=== PATIENT | female | born 1975 | race Caucasian/White ===

== ENCOUNTER 2018-04-28 00:02 | Emergency (ER) | payer BC, OTHER ==
[2018-04-28 00:17] VITALS: RESP 18; TEMP 98.3
[2018-04-28] MEDS ORDERED: IBUPROFEN 600 MG TAB PO STA (01:54)
--- NOTE | 2018-04-28 02:18 | XR ---
EXAMINATION TYPE: XR shoulder complete LT DATE OF EXAM: 04/28/2018 COMPARISON: NONE HISTORY: Shoulder pain TECHNIQUE: 3 views FINDINGS: I see no fracture nor dislocation. Glenohumeral joint is anatomic. There are no pathologic calcifications. IMPRESSION: Negative left shoulder exam.
--- NOTE | 2018-04-28 02:32 | ED ---
Lower Extremity Injury HPI - General Chief Complaint: Extremity Injury, Upper Stated Complaint: Left should pain-[facility] Time Seen by Provider: 04/28/18 01:26 Source: patient Mode of arrival: ambulatory Limitations: no limitations - History of Present Illness Initial Comments: 42-year-old female patient presents the emergency department today for evaluation of left shoulder pain. Patient states that she was at work when she was attempting to put a lid on a crate, she states that the lid fell and pulled her arm and shoulder. If she states that initially the pain wasn't so bad when she went back to work she started to have severe pain with movement of the shoulder. Patient denies any numbness or tingling to the arm. Denies any radiation of the pain down the arm. Denies any history of injury to the shoulder. Denies taking anything for pain. She denies any other injuries. Patient denies any headache, neck pain, back pain, chest pain, shortness of breath, dizziness, weakness, abdominal pain, nausea, vomiting, or difficulties with bowel movements or urination. - Related Data Home Medications Medication Instructions Recorded Confirmed Atomoxetine HCl [Strattera] 10 mg PO QAM 12/14/14 10/19/15 Oxybutynin Xl [Ditropan XL] 5 mg PO DAILY 12/14/14 10/19/15 Topiramate [Topiramate ER] 25 mg PO DAILY 12/14/14 10/19/15 buPROPion HCL [Wellbutrin] 300 mg PO DAILY 12/14/14 10/19/15 lamoTRIgine [LaMICtal Xr] 25 mg PO DAILY 12/14/14 10/19/15 Previous Rx's Medication Instructions Recorded ALPRAZolam [Xanax] 0.5 mg PO Q8HR PRN #10 tablet 10/19/15 Ibuprofen [Motrin] 600 mg PO Q8HR PRN #30 tab 04/28/18 Allergies Allergy/AdvReac Type Severity Reaction Status Date / Time Sulfa (Sulfonamide Allergy Rash/Hives Verified 04/28/18 00:17 Antibiotics) Review of Systems ROS Statement: Those systems with pertinent positive or pertinent negative responses have been documented in the HPI. ROS Other: All systems not noted in ROS Statement are negative. Past Medical History Past Medical History: No Reported History Additional Past Medical History / Comment(s): BIPOLAR, DEPRESSION, VALVE LEAKS, History of Any Multi-Drug Resistant Organisms: None Reported Past Surgical History: Cholecystectomy, Hysterectomy Past Psychological History: Bipolar, Depression Smoking Status: Current every day smoker Past Alcohol Use History: Occasional Past Drug Use History: None Reported General Exam Limitations: no limitations General appearance: alert, in no apparent distress, other (This is a well- developed, well-nourished adult female patient in no acute distress. Vital signs upon presentation are temperature 98.3F, pulse 55, respirations 18, blood pressure 142/71, pulse ox 100% on room air.) Eye exam: Present: normal appearance, PERRL, EOMI. Absent: scleral icterus, conjunctival injection, periorbital swelling ENT exam: Present: normal exam, normal oropharynx, mucous membranes moist Respiratory exam: Present: normal lung sounds bilaterally. Absent: respiratory distress, wheezes, rales, rhonchi, stridor Cardiovascular Exam: Present: regular rate, normal rhythm, normal heart sounds. Absent: systolic murmur, diastolic murmur, rubs, gallop, clicks Extremities exam: Present: normal inspection, full ROM (Patient does have full range of motion however has increased pain to the shoulder with forward flexion at approximately 180.), tenderness (Left before meals joint tenderness), normal capillary refill, other (Skin to the left arm is pink, warm, and dry. Cap refills less than 3 seconds. Radial pulses are 2+ and equal bilaterally.). Absent: pedal edema, joint swelling, calf tenderness Neurological exam: Present: alert, oriented X3, CN II-XII intact Psychiatric exam: Present: normal affect, normal mood Skin exam: Present: warm, dry, intact, normal color. Absent: rash Course Vital Signs 04/28/18 00:12 Temperature 98.3 F Pulse Rate 55 L Respiratory 18 Rate Blood Pressure 142/71 O2 Sat by Pulse 100 Oximetry Medical Decision Making - Medical Decision Making 42-year-old female patient presented to the emergency department today for evaluation of left shoulder pain after an injury at work. Physical examination did reveal some tenderness over the AC joint. Neurovascular status was intact. X-ray of the shoulder showed no acute abnormalities. I did discuss with patient that her injury is most likely due to muscle, ligamentous, or tenderness strain. She is instructed to follow-up with orthopedics for further evaluation. She'll be given ibuprofen for pain control. She was educated regarding ice and heat application. Return parameters discussed in detail. She verbalizes understanding and agrees with this plan. - Radiology Data Radiology results: report reviewed, image reviewed 3 views of the left shoulder was obtained. There is no fracture nor dislocation. Glenohumeral joint is anatomic. There are no pathologic calcifications. Impression by Dr. Bonilla shows negative left shoulder exam. Disposition Clinical Impression: Left shoulder strain Disposition: HOME SELF-CARE Condition: Good Instructions: Shoulder Sprain (ED) Additional Instructions: Apply ice to the left shoulder for the first 24 hours and switch to warm moist heat. Follow-up with orthopedics in 1-2 days. Return here immediately for any new, worsening, or concerning symptoms. Prescriptions: Ibuprofen [Motrin] 600 mg PO Q8HR PRN #30 tab PRN Reason: Pain Is patient prescribed a controlled substance at d/c from ED?: No Referrals: Evelin Garcia MD [Primary Care Provider] - 1-2 days Charles Schneider MD [STAFF PHYSICIAN] - 1-2 days Time of Disposition: 02:32
[2018-04-28 03:01] VITALS: BP 120/62; PULSE 54
== END 2018-04-28 03:00 | disposition home or self-care (01) ==
LOC: EC 00:02
DX: S46.912A Strain of unspecified muscle, fascia and tendon at shoulder and upper arm level, left arm, initial encounter (principal); F31.9 Bipolar disorder, unspecified; F17.200 Nicotine dependence, unspecified, uncomplicated; Z79.899 Other long term (current) drug therapy; Z88.2 Allergy status to sulfonamides; X58.XXXA Exposure to other specified factors, initial encounter; Y92.69 Other specified industrial and construction area as the place of occurrence of the external cause; Y99.0 Civilian activity done for income or pay
CPT/HCPCS: 99283

== ENCOUNTER 2018-05-01 18:15 | Emergency (ER) | payer BC, OTHER ==
[2018-05-01 18:52] VITALS: BP 114/73; PULSE 66; RESP 18; TEMP 98
--- NOTE | 2018-05-01 19:39 | ED ---
General Adult HPI - General Chief complaint: Extremity Injury, Upper Stated complaint: revisit left shoulder pain Time Seen by Provider: 05/01/18 19:06 Source: patient, RN notes reviewed Mode of arrival: ambulatory Limitations: no limitations - History of Present Illness Initial comments: 42-year-old female since to the emergency department for a chief complaint of left shoulder pain 4 days. Patient was at work 4 days ago putting a lid on a crate when the lid fell while she was still holding it. Patient states it pulled her left shoulder. Patient states the pain has been persistent since that time. Patient states moving the arm causes it to her most. Resting the arm helps alleviate the pain. Patient has been taking Motrin which has helped. Patient was seen in the emergency department that day and had negative x-rays of the shoulder. Patient has no other complaints at this time including shortness of breath, chest pain, abdominal pain, nausea or vomiting, headache, or visual changes. - Related Data Previous Rx's Medication Instructions Recorded Acetaminophen [Tylenol] 500 mg PO Q4-6H PRN #20 tab 05/01/18 Allergies Allergy/AdvReac Type Severity Reaction Status Date / Time Sulfa (Sulfonamide Allergy Rash/Hives Verified 05/01/18 18:52 Antibiotics) Review of Systems ROS Statement: Those systems with pertinent positive or pertinent negative responses have been documented in the HPI. ROS Other: All systems not noted in ROS Statement are negative. Past Medical History Past Medical History: No Reported History Additional Past Medical History / Comment(s): BIPOLAR, DEPRESSION, VALVE LEAKS, History of Any Multi-Drug Resistant Organisms: None Reported Past Surgical History: Cholecystectomy, Hysterectomy Past Psychological History: Bipolar, Depression Smoking Status: Current every day smoker Past Alcohol Use History: Occasional Past Drug Use History: None Reported General Exam Limitations: no limitations General appearance: alert, in no apparent distress Head exam: Present: atraumatic, normocephalic, normal inspection Eye exam: Present: normal appearance ENT exam: Present: normal exam, mucous membranes moist Neck exam: Present: normal inspection, full ROM. Absent: tenderness, meningismus, lymphadenopathy Respiratory exam: Present: normal lung sounds bilaterally. Absent: respiratory distress, wheezes, rales, rhonchi, stridor Cardiovascular Exam: Present: regular rate, normal rhythm, normal heart sounds. Absent: systolic murmur, diastolic murmur, rubs, gallop, clicks Extremities exam: Present: tenderness (Tenderness to the superior left shoulder around the AC joint area), normal capillary refill, other (Radial pulse 2+ in the left upper extremity. Sensation intact.). Absent: full ROM (Patient has about 60 abduction and and 120 flexion. Patient states abduction and hurts more than flexion. Full extension. Full range motion in the left elbow and wrist.), joint swelling (No swelling or ecchymosis noted in the left shoulder) Course Vital Signs 05/01/18 18:48 Temperature 98.0 F Pulse Rate 66 Respiratory 18 Rate Blood Pressure 114/73 O2 Sat by Pulse 99 Oximetry Medical Decision Making - Medical Decision Making 42-year-old female presents to the emergency department for a chief complaint of left shoulder pain 4 days. Patient injured it at work when she dropped a heavy crate lid that she was holding and it pulled her shoulder. Patient had negative x-rays in the emergency department at that time. Patient states pain has been persistent with movement. On exam patient has limited range of motion of the shoulder. Tenderness to the AC join. Neurovascular intact. Offered x- ray again. Patient declines at this time. Patient states she needs a note for work today. She was given Tylenol and Motrin for pain. Discussed with patient that she may have a ligamentous injury and she will need orthopedic follow-up. Patient is aware of this. She has an appointment with [facility] tomorrow and will follow up there as well. She will return to the emergency Department if she has any worsening symptoms. Disposition Clinical Impression: Shoulder pain, left Disposition: HOME SELF-CARE Condition: Good Instructions: Shoulder Pain (ED) Additional Instructions: Please take Motrin and Tylenol for pain. Ice the shoulder for comfort. Please follow-up with your appointment at [facility] tomorrow. Please return to the emergency department if you have any worsening symptoms. Please also try to follow-up with orthopedics. Prescriptions: Acetaminophen [Tylenol] 500 mg PO Q4-6H PRN #20 tab PRN Reason: Pain Is patient prescribed a controlled substance at d/c from ED?: No Referrals: Evelin Garcia MD [Primary Care Provider] - 1-2 days Charles Schneider MD [STAFF PHYSICIAN] - 1-2 days Time of Disposition: 19:36
== END 2018-05-01 19:41 | disposition home or self-care (01) ==
LOC: EC 18:15
DX: M25.512 Pain in left shoulder (principal); F17.200 Nicotine dependence, unspecified, uncomplicated; Z88.2 Allergy status to sulfonamides; Z53.29 Procedure and treatment not carried out because of patient's decision for other reasons
CPT/HCPCS: 99283

== ENCOUNTER 2018-12-01 06:48 | Day surgery (SDC) | payer BC ==
[2018-11-29 11:48] VITALS: BMI 39.8
[~2018-12-01 06:48] MED LIST: LACTATED RINGERS 1,000 ML IV SCH; LIDOCAINE 1% 20 ML VIAL (10MG/ML) FOR IV START INTRADERMA PRN
[2018-12-01 07:16] VITALS: TEMP 98.4
[2018-12-01] MEDS ORDERED: LIDOCAINE 1% INJ 10MG/ML (20 ML MDV) ONE (07:45)
[2018-12-01] MEDS ORDERED: GLUCAGON 1 MG/ML VIAL ONE (07:45)
[2018-12-01] MEDS ORDERED: PROPOFOL 10 MG/ML 20 ML VIAL IV ONE (07:45)
--- NOTE | 2018-12-01 07:48 | P.GSHP ---
History of Present Illness H&P Date: 12/01/18 Chief Complaint: GERD, gastritis, diarrhea This a 43-year-old female referred from Dr. Soliman. Patient's had issues with GERD, diarrhea and gastritis with epigastric pain. She will stay for EGD and colonoscopy. Past Medical History Past Medical History: No Reported History Additional Past Medical History / Comment(s): BIPOLAR, DEPRESSION, VALVE LEAKS, . ABdominal pain and diarrhea History of Any Multi-Drug Resistant Organisms: None Reported Past Surgical History: Cholecystectomy, Hysterectomy Past Anesthesia/Blood Transfusion Reactions: No Reported Reaction Smoking Status: Current every day smoker - Past Family History Mother Family Medical History: No Reported History Medications and Allergies Home Medications Medication Instructions Recorded Confirmed Type Acetaminophen [Tylenol] 500 mg PO Q4-6H PRN #20 tab 05/01/18 12/01/18 Rx Cariprazine HCl [Vraylar] 1.5 mg PO DAILY 11/29/18 12/01/18 History Phentermine HCl [Adipex-P] 37.5 mg PO DAILY 11/29/18 12/01/18 History Allergies Allergy/AdvReac Type Severity Reaction Status Date / Time Sulfa (Sulfonamide Allergy Rash/Hives Verified 11/29/18 11:40 Antibiotics) Surgical - Exam Vital Signs Temp Pulse Resp BP Pulse Ox 98.4 F 70 18 118/59 100 12/01/18 07:11 12/01/18 07:11 12/01/18 07:11 12/01/18 07:11 12/01/18 07:11 - General well developed, well nourished, no distress - Eyes PERRL - ENT normal pinna - Neck no masses - Respiratory normal expansion - Cardiovascular Rhythm: regular - Abdomen Abdomen: soft, non tender Assessment and Plan Assessment: GERD, epigastric pain, diarrhea. We'll perform EGD and colonoscopy.
[2018-12-01 08:23] VITALS: RESP 16
[2018-12-01 08:44] VITALS: BP 122/84; PULSE 57
--- NOTE | 2018-12-15 08:09 | P.OP ---
Date of Procedure: 12/01/18 Preoperative Diagnosis: Gastritis Diarrhea Postoperative Diagnosis: Antral gastritis Hiatal hernia Esophagitis Rectal biopsy pathology pending Procedure(s) Performed: EGD Colonoscopy Anesthesia: MAC Surgeon: Ricky Hopkins Pathology: other (Rectum, antrum, esophagus) Condition: stable Disposition: PACU Description of Procedure: The patient's placed on the endoscopy table in the lateral position. She received IV sedation. The gastroscope placed oropharynx and passed in the esophagus into the stomach. Scope was placed through the pylorus. First and second portion of the duodenum appeared normal. The scope was then brought back the antrum this. Mildly inflamed. A biopsies performed. The scope was unretroflexed and remainder of the stomach appeared normal. There was a small hiatal hernia. The GE junction was at 39 cm. The distal esophagus appeared minimally inflamed a biopsies performed. The proximal esophagus appeared normal. The scope was withdrawn for patient. Next digital rectal exam was performed which revealed no abnormalities.. The flexible colonoscope was then placed patient anus and passed throughout the entire colon. The ileocecal valve was visualized. The cecum, ascending and transverse colon appeared normal. The descending and sigmoid colon appeared normal. The scope was brought back the rectum into the patient's symptoms of diarrhea a biopsies performed. The scope was then withdrawn for patient.
== END 2018-12-01 09:05 | disposition home or self-care (01) ==
LOC: ORWHC2ENDO 06:48
PROVIDERS: ATTEND Surgery
DX: K29.50 Unspecified chronic gastritis without bleeding (principal); K21.0 Gastro-esophageal reflux disease with esophagitis; K44.9 Diaphragmatic hernia without obstruction or gangrene; R19.7 Diarrhea, unspecified; F31.9 Bipolar disorder, unspecified; F17.210 Nicotine dependence, cigarettes, uncomplicated; Z79.899 Other long term (current) drug therapy; Z90.49 Acquired absence of other specified parts of digestive tract; Z90.710 Acquired absence of both cervix and uterus; Z88.2 Allergy status to sulfonamides
CPT/HCPCS: 88305; 45380; 43239; J1610; J2001; J2704; 45378

== ENCOUNTER → 2018-12-19 | Outpatient (CLI) | payer BC ==
[2018-12-19 15:34] VITALS: BP 139/82; PULSE 82; TEMP 97.6; BMI 39.8
--- NOTE | 2018-12-20 09:41 | P.HPBAR ---
Bariatric H&P - History & Physicial H&P Date: 12/19/18 History & Physicial: Visit/CC: initial clinic visit Patient initial contact: Initial weight: Initial weight in pounds: Height: 5 ft 8 in Initial BMI: Last weight: Current weight: 118.796 kg Current weight in pounds: 261.90 Current BMI: 39.8 [place] body weight (based on NIH guidelines): 63.503 kg Excess body weight loss: The patient is a 43 year-old F who presents for Bariatric Assessment. Patient resents today for new patient consultation for sleeve gastrectomy. Patient is morbidly obese with BMI 40. She's had multiple issues including GERD. She has a known hiatal hernia. Past Medical History Past Medical History: No Reported History Additional Past Medical History / Comment(s): BIPOLAR, DEPRESSION, VALVE LEAKS, . ABdominal pain and diarrhea History of Any Multi-Drug Resistant Organisms: None Reported Past Surgical History: Cholecystectomy, Hysterectomy Past Anesthesia/Blood Transfusion Reactions: No Reported Reaction Past Psychological History: Bipolar, Depression Smoking Status: Current every day smoker Past Alcohol Use History: Occasional Additional Past Alcohol Use History / Comment(s): smoker "few years 1/2 ppd" Past Drug Use History: None Reported - Past Family History Mother Family Medical History: No Reported History Surgical - Exam Vital Signs Temp Pulse BP 97.6 F 82 139/82 12/19/18 15:31 12/19/18 15:31 12/19/18 15:31 BMI 40 - General well developed, well nourished, no distress - Eyes PERRL - ENT normal pinna - Neck no masses - Respiratory normal expansion - Cardiovascular Rhythm: regular - Abdomen Abdomen: soft, non tender Bariatric Assessment & Plan Plan: Morbid obesity with BMI 40. Patient has a good understanding of the sleeve gastrectomy. We went over the risks and benefits of procedure including issues of gastric staple line disruption. Patient will follow-up in 8 weeks. She will be scheduled for sleeve gastrectomy once her insurance authorization is about. Bariatric Checklist Checklist: Plan: Checklist: EGD: 1. Hiatal hernia: 2. H. Pylori: HgbA1c: Vitamin D: Smoking: Current every day smoker Primary care physician referral: dr muhammad Psychiatry clearance: Cardiology clearance: Sleep study: Diet journal: VTE risk score: VTE risk level: Rehab needs at discharge:
== END ==
LOC: BARWHC3 14:27
PROVIDERS: ATTEND Surgery
DX: E66.01 Morbid (severe) obesity due to excess calories (principal); F17.200 Nicotine dependence, unspecified, uncomplicated; K21.9 Gastro-esophageal reflux disease without esophagitis; K44.9 Diaphragmatic hernia without obstruction or gangrene; Z68.41 Body mass index [BMI] 40.0-44.9, adult; Z90.49 Acquired absence of other specified parts of digestive tract; Z90.710 Acquired absence of both cervix and uterus
CPT/HCPCS: 99211

== ENCOUNTER → 2018-12-21 | Outpatient (CLI) | payer BC ==
[2018-12-21 15:11] LABS: HCT 43.7 % (34.0-46.0); HGB 14.1 gm/dL (11.4-16.0); MCH 30.3 pg (25.0-35.0); MCHC 32.3 g/dL (31.0-37.0); MCV 93.8 fL (80.0-100.0); Mean Platelet Volume 7.4; Platelet Count 281 k/uL (150-450); RBC 4.66 m/uL (3.80-5.40); RDW 12.7 % (11.5-15.5); WBC 7.7 k/uL (3.8-10.6)
[2018-12-21 19:48] LABS: Iron Saturation 24.47 (12.00-45.00)
[2018-12-21 19:50] LABS: Hemoglobin A1C 5.2 % (4.0-6.0)
[2018-12-21 19:52] LABS: Albumin 4.2 g/dL (3.80-4.90); Albumin/Globulin Ratio 2.21 (1.60-3.17); Anion Gap 6.7 mmol/L (4.00-12.00); Calcium 8.9 mg/dL (8.7-10.3); Carbon Dioxide 27.3 mmol/L (21.6-31.8); Globulin 1.9 g/dL (1.6-3.3); Potassium 4.4 mmol/L (3.5-5.5); Total Bilirubin 0.4 mg/dL (0.2-1.2); Total Protein 6.1 g/dL (6.2-8.2)
[2018-12-21 19:56] LABS: Vitamin D 25 Hydroxy 15.6 ng/mL (30.0-100.0)
== END | disposition home or self-care (01) ==
LOC: LABWHC1 14:27
PROVIDERS: ATTEND Surgery
DX: D50.8 Other iron deficiency anemias (principal); E89.1 Postprocedural hypoinsulinemia; K91.2 Postsurgical malabsorption, not elsewhere classified; E66.01 Morbid (severe) obesity due to excess calories
CPT/HCPCS: 36415; 80053; 82306; 83036; 83540; 83550; 85027; 93005

== ENCOUNTER → 2019-03-06 | Outpatient (CLI) | payer BC ==
[2019-03-06 14:44] VITALS: BP 99/66; PULSE 73; TEMP 98.1; BMI 41.1
--- NOTE | 2019-03-07 09:51 | P.HPBAR ---
Bariatric H&P - History & Physicial H&P Date: 03/06/19 History & Physicial: Visit/CC: presurgical visit Patient initial contact: Initial weight: Initial weight in pounds: Height: 5 ft 8 in Initial BMI: Last weight: Current weight: 122.878 kg Current weight in pounds: 270.90 Current BMI: 41.1 [place] body weight (based on NIH guidelines): 63.503 kg Excess body weight loss: The patient is a 43 year-old F who presents for Bariatric Assessment. Patient presents today for presurgical consultation. He is currently working on her authorization for sleeve gastrectomy. Her BMI is 42. Past Medical History Past Medical History: No Reported History Additional Past Medical History / Comment(s): BIPOLAR, DEPRESSION, VALVE LEAKS,. ABdominal pain and diarrhea History of Any Multi-Drug Resistant Organisms: None Reported Past Surgical History: Cholecystectomy, Hysterectomy Past Anesthesia/Blood Transfusion Reactions: No Reported Reaction Past Psychological History: Bipolar, Depression Smoking Status: Current every day smoker Past Alcohol Use History: Occasional Additional Past Alcohol Use History / Comment(s): smoker "few years 1/2 ppd" Past Drug Use History: None Reported - Past Family History Mother Family Medical History: No Reported History Surgical - Exam Vital Signs Temp Pulse BP 98.1 F 73 99/66 03/06/19 14:39 03/06/19 14:39 03/06/19 14:39 - General well developed, well nourished, no distress - Eyes PERRL - ENT normal pinna - Neck no masses - Respiratory normal expansion - Cardiovascular Rhythm: regular - Abdomen Abdomen: soft, non tender Bariatric Assessment & Plan Plan: Morbid obesity with BMI 42. Patient will be scheduled for sleeve gastrectomy once her arthritis complete. She has severe comorbidities related to morbid obesity. Bariatric Checklist Checklist: Plan: Checklist: EGD: 1. Hiatal hernia: 2. H. Pylori: HgbA1c: Vitamin D: Smoking: Current every day smoker Primary care physician referral: dr muhammad Psychiatry clearance: Cardiology clearance: Sleep study: Diet journal: VTE risk score: VTE risk level: Rehab needs at discharge:
== END | disposition home or self-care (01) ==
LOC: BARWHC3 14:11
PROVIDERS: ATTEND Surgery
DX: E66.01 Morbid (severe) obesity due to excess calories (principal); F32.9 Major depressive disorder, single episode, unspecified; F17.210 Nicotine dependence, cigarettes, uncomplicated; M19.90 Unspecified osteoarthritis, unspecified site; Z90.49 Acquired absence of other specified parts of digestive tract; Z90.710 Acquired absence of both cervix and uterus; Z68.41 Body mass index [BMI] 40.0-44.9, adult
CPT/HCPCS: 99211

== ENCOUNTER → 2019-03-20 | Outpatient (CLI) | payer BC ==
[2019-03-20 12:09] VITALS: BMI 42.2
== END ==
LOC: BARWHC3 08:27
PROVIDERS: ATTEND Surgery
DX: E66.01 Morbid (severe) obesity due to excess calories (principal); Z68.41 Body mass index [BMI] 40.0-44.9, adult
CPT/HCPCS: 97804

== ENCOUNTER → 2019-04-13 | Outpatient (CLI) | payer BC ==
--- NOTE | 2019-04-13 09:19 | US ---
EXAMINATION TYPE: US kidneys/renal and bladder DATE OF EXAM: 04/13/2019 COMPARISON: CT & US 2014 CLINICAL HISTORY: N28.9 CYST. History of right kidney cyst EXAM MEASUREMENTS: Right Kidney: 10.8 x 4.4 x 4.8 cm Left Kidney: 10.0 x 5.0 x 4.5 cm Difficult and limited study due to patient body habitus Right Kidney: no hydronephrosis or masses seen, lesion seen on previous CT & US not seen on today's e xam Left Kidney: no hydronephrosis or masses seen Bladder: not fully distended, appears wnl as seen Bilateral Jets seen: no There is no evidence for hydronephrosis at this point in time. No nephrolithiasis is seen. No hans s are identified. The urinary bladder is anechoic. Bilateral ureteral jets are not seen. IMPRESSION: The previously seen small right renal lesion is not visualized sonographically. Follow-up with three- phase CT could be performed to assess for stability or MRI for more definitive diagnosis.
== END | disposition home or self-care (01) ==
LOC: RADUSWWP 07:34
PROVIDERS: ATTEND Internal Medicine
DX: N28.1 Cyst of kidney, acquired (principal)
CPT/HCPCS: 76770

== ENCOUNTER → 2019-05-15 | Outpatient (CLI) | payer BC ==
[2019-05-15 13:32] VITALS: BP 104/64; PULSE 73; TEMP 98; BMI 41.6
--- NOTE | 2019-05-15 14:25 | P.HPBAR ---
Bariatric H&P - History & Physicial H&P Date: 05/15/19 History & Physicial: Visit/CC: review/sign sleeve consent, obtain PAT lab order Patient initial contact: Initial weight: 125.963 kg Initial weight in pounds: 277.70 Height: 5 ft 8 in Initial BMI: 42.2 Last weight: Current weight: 124.284 kg Current weight in pounds: 274.00 Current BMI: 41.6 [place] body weight (based on NIH guidelines): 63.503 kg Excess body weight loss: 2.6% The patient is a 43 year-old F who presents for Bariatric Assessment. Patient presents today for presurgical consultation. Patient's morbid obesity. Her BMI is 42. She has an extremely good understanding of the sleeve gastrectomy. She has met all her insurance authorization requirements. Past Medical History Past Medical History: No Reported History Additional Past Medical History / Comment(s): BIPOLAR, DEPRESSION, VALVE LEAKS,. ABdominal pain and diarrhea History of Any Multi-Drug Resistant Organisms: None Reported Past Surgical History: Cholecystectomy, Hysterectomy Past Anesthesia/Blood Transfusion Reactions: No Reported Reaction Past Psychological History: Bipolar, Depression Smoking Status: Current every day smoker Past Alcohol Use History: Occasional Additional Past Alcohol Use History / Comment(s): smoker "few years 1/2 ppd" Past Drug Use History: None Reported - Past Family History Mother Family Medical History: No Reported History Surgical - Exam Vital Signs Temp Pulse BP 98.0 F 73 104/64 05/15/19 13:22 05/15/19 13:22 05/15/19 13:22 - General well developed, well nourished, no distress - Eyes PERRL - ENT normal pinna - Neck no masses - Respiratory normal expansion - Cardiovascular Rhythm: regular - Abdomen Abdomen: soft, non tender Bariatric Assessment & Plan Plan: Morbid obesity, BMI of 42. Patient has a good understanding of the sleeve gastrectomy. We will over the risks and benefits of the procedure. She is aware the risk of gastric staple line disruption leak or scarring. Patient will be scheduled for laparoscopic sleeve gastrectomy this month. Bariatric Checklist Checklist: Plan: Checklist: EGD: 1. Hiatal hernia: 2. H. Pylori: HgbA1c: Vitamin D: Smoking: Current every day smoker Primary care physician referral: dr muhammad Psychiatry clearance: Cardiology clearance: Sleep study: Diet journal: VTE risk score: VTE risk level: Rehab needs at discharge:
== END ==
LOC: BARWHC3 12:52
PROVIDERS: ATTEND Surgery
DX: E66.01 Morbid (severe) obesity due to excess calories (principal); Z68.41 Body mass index [BMI] 40.0-44.9, adult; F17.200 Nicotine dependence, unspecified, uncomplicated; Z90.49 Acquired absence of other specified parts of digestive tract
CPT/HCPCS: 99211

== ENCOUNTER → 2019-05-15 | Outpatient (CLI) | payer BC ==
[2019-05-15 15:08] LABS: Basophils # (A) 0.1 k/uL (0-0.2); Basophils % (A) 1 %; Eosinophils # (A) 0.3 k/uL (0-0.7); Eosinophils % (A) 5 %; HCT 44.6 % (34.0-46.0); HGB 14.7 gm/dL (11.4-16.0); Lymphocytes # (A) 1.9 k/uL (1.0-4.8); Lymphocytes % (A) 25 %; MCH 29.8 pg (25.0-35.0); MCHC 32.9 g/dL (31.0-37.0); MCV 90.5 fL (80.0-100.0); Mean Platelet Volume 7.4; Monocytes # (A) 0.4 k/uL (0-1.0); Monocytes % (A) 6 %; Neutrophils # (A) 4.6 k/uL (1.3-7.7); Neutrophils % (A) 62 %; Platelet Count 310 k/uL (150-450); RBC 4.92 m/uL (3.80-5.40); RDW 12.5 % (11.5-15.5); WBC 7.4 k/uL (3.8-10.6)
[2019-05-15 15:18] LABS: ALT 20 U/L (9-52); AST 22 U/L (14-36); African American GFR (CKD) >90 (>60 ml/min/1.73 sqM); Albumin 4.3 g/dL (3.5-5.0); Alkaline Phosphatase 69 U/L (38-126); Anion Gap 9 mmol/L; Blood Urea Nitrogen 15 mg/dL (7-17); Calcium 9.6 mg/dL (8.4-10.2); Carbon Dioxide 25 mmol/L (22-30); Chloride 104 mmol/L (98-107); Glucose 82 mg/dL (74-99); Potassium 4.7 mmol/L (3.5-5.1); Sodium 138 mmol/L (137-145); Total Bilirubin 0.7 mg/dL (0.2-1.3); Total Protein 7.3 g/dL (6.3-8.2)
== END | disposition home or self-care (01) ==
LOC: LABPAT 13:45
PROVIDERS: ATTEND Surgery
DX: Z01.812 Encounter for preprocedural laboratory examination (principal); Z01.818 Encounter for other preprocedural examination
CPT/HCPCS: 36415; 80053; 85025

== ENCOUNTER 2019-05-26 07:11 | Inpatient (IN) | payer BC ==
[~2019-05-26 07:11] MED LIST changes: +DEXAMETHASONE SOD PHOSPHATE 10 MG/ML 1 ML VIAL IV ONE; +ENOXAPARIN 40 MG/0.4 ML SYRINGE SQ ONE; -LACTATED RINGERS 1,000 ML IV SCH; -LIDOCAINE 1% 20 ML VIAL (10MG/ML) FOR IV START INTRADERMA PRN; +ONDANSETRON 4 MG/2 ML VIAL IVP ONE; +ONDANSETRON 4 MG/2 ML VIAL IVP PRN; +ceFAZolin 3 GM in SODIUM CHLORIDE 0.9% 100 ML IVPB ONE
[2019-05-26] MEDS ORDERED: LACTATED RINGERS 1,000 ML IV ONE ×2 (07:36→11:23)
[2019-05-26] MEDS ORDERED: LIDOCAINE 1% 20 ML VIAL (10MG/ML) FOR IV START INTRADERMA ONE (07:37)
--- NOTE | 2019-05-26 10:25 | P.GSHP ---
History of Present Illness H&P Date: 05/26/19 Chief Complaint: Morbid obesity This is a 43-year-old female who presents today for laparoscopic sleeve gastrectomy. Patient's BMI is 42. She has had lifetime problems obesity. Patient aware the risks of surgery including conversion to the open procedure and issues with the gastric staple line such as bleeding scarring perforation. Past Medical History Past Medical History: No Reported History Additional Past Medical History / Comment(s): BIPOLAR, DEPRESSION, VALVE LEAKS, HERNIA, ABD. PAIN. ABdominal pain and diarrhea-CURRENTLY NOT ON ANY MEDS History of Any Multi-Drug Resistant Organisms: None Reported Past Surgical History: Cholecystectomy, Hysterectomy Past Anesthesia/Blood Transfusion Reactions: No Reported Reaction Smoking Status: Current every day smoker - Past Family History Mother Family Medical History: No Reported History Medications and Allergies Home Medications Medication Instructions Recorded Confirmed Type No Known Home Medications 05/15/19 05/22/19 History Allergies Allergy/AdvReac Type Severity Reaction Status Date / Time Sulfa (Sulfonamide Allergy Rash/Hives Verified 05/22/19 14:23 Antibiotics) Surgical - Exam Vital Signs Temp Pulse Resp BP Pulse Ox 97.8 F 61 18 101/51 97 05/26/19 07:35 05/26/19 07:35 05/26/19 07:35 05/26/19 07:35 05/26/19 07:35 BMI 42 - General well developed, well nourished, no distress - Eyes PERRL - ENT normal pinna - Neck no masses - Respiratory normal expansion - Cardiovascular Rhythm: regular - Abdomen Abdomen: soft, non tender Assessment and Plan Assessment: Morbid obesity BMI 42 We'll perform laparoscopic sleeve gastrectomy.
[2019-05-26] MEDS ORDERED: PROPOFOL 10 MG/ML 20 ML VIAL IV ONE (10:36)
[2019-05-26] MEDS ORDERED: NEOSTIGMINE 1 MG/ML 10 ML VIAL ONE (10:36)
[2019-05-26] MEDS ORDERED: SUCCINYLCHOLINE CHLORIDE 100 MG/5 ML SYR IV ONE (10:36)
[2019-05-26] MEDS ORDERED: GLYCOPYRROLATE 0.2 MG/ML 2 ML VIAL ONE (10:36)
[2019-05-26] MEDS ORDERED: LIDOCAINE 1% INJ 10MG/ML (20 ML MDV) ONE (10:36)
[2019-05-26] MEDS ORDERED: fentaNYL (PF) 50 MCG/ML 2 ML AMP ONE (10:36)
[2019-05-26] MEDS ORDERED: ROCURONIUM BROMIDE 10 MG/ML 10 ML VIAL IV ONE (10:36)
[2019-05-26] MEDS ORDERED: MIDAZOLAM 2 MG/2 ML VIAL ONE (10:36)
[2019-05-26] MEDS ORDERED: HYDROmorphone (PF) 1 MG/ML ONE (10:36)
[2019-05-26] MEDS ORDERED: BUPIVACAINE (PF) 0.25% 30 ML VIAL SQ ONE (11:21)
[2019-05-26] MEDS ORDERED: NALOXONE 0.4 MG/ML 1 ML VIAL IV PRN (12:03)
[2019-05-26] MEDS ORDERED: HYOSCYAMINE ORAL DROPS 1.875 MG/15 ML BOTTLE PO PRN (12:03)
[2019-05-26] MEDS ORDERED: SIMETHICONE 40 MG/0.6 ML DROPS 2,000 MG/30 ML BOTTLE PO PRN (12:03)
[2019-05-26] MEDS ORDERED: diphenhydrAMINE 50 MG/ML 1 ML VIAL IVP PRN (12:03)
--- NOTE | 2019-05-26 12:03 | P.OP ---
Date of Procedure: 05/26/19 Preoperative Diagnosis: Morbid obesity, BMI 42 Postoperative Diagnosis: Morbid obesity, BMI 42 Procedure(s) Performed: Laparoscopic sleeve gastrectomy Anesthesia: JOCELYN Surgeon: Ricky Hopkins Estimated Blood Loss (ml): 10 Pathology: other (Stomach) Condition: stable Disposition: PACU Description of Procedure: The patient was placed on the operating room table in the supine position. She received general anesthesia and then was placed in dorsal lithotomy position. Her abdomen was prepped and draped in sterile fashion. The skin incision sites were anesthetized 1% local Xylocaine. And then the skin was incised with an 11 blade in the left lateral position. Using a blade less trocar under direct visualization the peritoneal cavity was entered. The abdomen was insufflated and then a 5 mm laparoscope was placed into the peritoneal cavity. A 5 mm trocar was placed in the right epigastric, and right lateral position. A 15 mm trocar was placed in the supra-umbilical position and another 5 mm trocar was placed in the left lateral position. The left lateral lobe of the liver was retracted. The stomach was visualized. The greater curvature of the stomach was then dissected using the Harmonic scissors. The dissection occurred approximately 5 cm from the pylorus to the level of the left denzel. There was no hiatal hernia seen. At this point a 40-German bougie dilator was placed the oropharynx and passed into the esophagus and into the stomach by the [employer]. The sleeve gastrectomy was performed by using the powered echelon stapler with a seam guard buttress material. Sequential firings of the stapler were performed. The gastric remnant was then brought out through the 15 mm trocar site. The dilator was withdrawn. And a orogastric tube was replaced into the stomach. The stomach was insufflated with 200 mL of methylene blue normal saline. There was no evidence of extravasation. The abdomen was irrigated there is no bleeding seen. The Skip-Jessica device was used to close the 15 mm trocar with 0 Vicryl. Skin was closed with interrupted 3-0 Monocryl sutures once the trochars withdrawn. Dermabond dressing was applied. Patient was sent to recovery in stable condition.
[2019-05-26] MEDS: HYDROmorphone 0.5 MG/0.5 ML SYRINGE IVP PRN ×4 (12:31→12:54)
[2019-05-26] MEDS: ONDANSETRON 4 MG/2 ML VIAL IVP PRN ×2 (12:32→16:14)
[2019-05-26] MEDS: LACTATED RINGERS 1,000 ML IV SCH ×2 (13:56→19:46)
[2019-05-26] MEDS: 0.9% NACL WITH KCL 20 MEQ/L 1,000 ML IV SCH ×2 (13:56→20:55)
[2019-05-26] MEDS: ALBUTEROL NEBULIZED 2.5 MG/3 ML INHALATION SCH ×2 (15:09→20:00)
[2019-05-26] MEDS: HYDROmorphone 1 MG/ML 1 ML SYRINGE IVP PRN ×2 (16:07→22:14)
[2019-05-26] MEDS: ENOXAPARIN 40 MG/0.4 ML SYRINGE SQ SCH (22:15)
[2019-05-27] MEDS: 0.9% NACL WITH KCL 20 MEQ/L 1,000 ML IV SCH (03:04)
[2019-05-27] MEDS: HYDROmorphone 1 MG/ML 1 ML SYRINGE IVP PRN ×2 (04:01→13:25)
[2019-05-27] MEDS: HYDROcodone/APAP 15 ML SOLUTION PO PRN ×2 (07:18→13:04)
[2019-05-27] MEDS: PANTOPRAZOLE 40 MG/10 ML VIAL IV SCH (07:19)
[2019-05-27] MEDS: ALBUTEROL NEBULIZED 2.5 MG/3 ML INHALATION SCH ×4 (08:12→20:07)
[2019-05-27 08:38] LABS: Basophils % (A) 0 %; Eosinophils # (A) 0.1 k/uL (0-0.7); Eosinophils % (A) 1 %; HCT 39.2 % (34.0-46.0); HGB 12.7 gm/dL (11.4-16.0); Lymphocytes # (A) 2.1 k/uL (1.0-4.8); Lymphocytes % (A) 15 %; MCH 30.3 pg (25.0-35.0); MCHC 32.5 g/dL (31.0-37.0); MCV 93.1 fL (80.0-100.0); Monocytes # (A) 0.7 k/uL (0-1.0); Monocytes % (A) 5 %; Neutrophils # (A) 11.6 k/uL (1.3-7.7); Neutrophils % (A) 79 %; Platelet Count 250 k/uL (150-450); RBC 4.21 m/uL (3.80-5.40); RDW 13.5 % (11.5-15.5); WBC 14.8 k/uL (3.8-10.6)
[2019-05-27 08:56] LABS: Calcium 8.1 mg/dL (8.4-10.2); Magnesium 2.5 mg/dL (1.6-2.3); Phosphorus 3.3 mg/dL (2.5-4.5); Potassium 4.8 mmol/L (3.5-5.1)
[2019-05-27] MEDS: 1: MVI, ADULT NO.4 WITH VIT K 10 ML, THIAMINE 100 MG, FOLIC ACID 1 MG, POTASSIUM CHLORID IV SCH ×12 (09:16→17:10)
--- NOTE | 2019-05-27 09:43 | FL ---
EXAMINATION TYPE: FL UGI DATE OF EXAM ORDERED: 05/27/2019 9:15 AM HISTORY: Status post gastric sleeve. COMPARISON: None. FINDINGS: The patient drank contrast with ease. There is prompt egress of contrast from esophagus in to the stomach. There is no significant free air. There is no extravasation. The ligament of Treitz i s in the normal location. Note is made of a previous cholecystectomy. IMPRESSION: STATUS POST GASTRIC SLEEVE PROCEDURE.
[2019-05-27] MEDS: ONDANSETRON 4 MG/2 ML VIAL IVP PRN ×2 (09:53→19:15)
--- NOTE | 2019-05-27 10:42 | P.PN ---
Progress Note - Text Progress Note Date: 05/27/19 The patient feels well. She has no significant nausea. Her esophagram performed today shows no evidence of leak or obstruction. On exam her vital signs are stable. Her abdomen soft. Status post sleeve gastrectomy. Patient will start a clear liquid diet today. We discussed with discharged home tomorrow.
[2019-05-27 11:19] VITALS: BMI 41.6
--- NOTE | 2019-05-27 11:44 | P.CON ---
Consult Note - . Consult date: 05/27/19 Assessment/Plan:: Reason for consult - management of chronic medical conditions. Ms. Ward is a 42-year-old female with a past medical history of GERD, morbid obesity admitted to the hospital for laparoscopic sleeve gastrectomy. She had the procedure done yesterday. Patient is sitting comfortably in a chair by the bedside and states that she has hunger cramps. Patient denies having any nausea or vomiting. She denies having any chest pain and difficulty in breathing. No swelling of her lower extremities. Patient denies having any dysuria or hematuria. Patient states that she has past medical history of depression and takes Cariprazine for the past 1 year. Patient also has history of GERD and diarrhea for which she takes antireflux medication and antidiarrheals. But for the past 3 weeks she has been off of all her medications as told by her surgeon. Today the patient is tearful she states that her mood has been low since being off her antidepressant. Patient denies having any suicidal or homicidal ideation. She states that she has good family support. REVIEW OF SYSTEMS: PSYCH: Patient is tearful NEURO:No c/o weakness of the extremties, No facial droop, No speech abnormalities. VASCULAR: Denies any lower extremity swelling. HEMATOLOGIC: No history of easy bleeding and bruising . No recent infections . RESPIRATORY: No cough, No SOB, No chest discomfort. IMMUNE: No infections INTEGUMENT: no rashes OPHTHALMOLOGIC: No blurry vision and no eye discharge : No dysuria or hematuria SCREEN TACKER: No bleeding PV CARDIAC: No chest pain , shortness of breath , paroxysmal nocturnal dyspnea MUSCULOSKELETAL : No Aches or pains in the joints or muscles. GI: As per HPI Past Medical History Past Medical History: No Reported History Additional Past Medical History / Comment(s): BIPOLAR, DEPRESSION, VALVE LEAKS, HERNIA, ABD. PAIN. ABdominal pain and diarrhea-CURRENTLY NOT ON ANY MEDS History of Any Multi-Drug Resistant Organisms: None Reported Past Surgical History: Cholecystectomy, Hysterectomy Past Anesthesia/Blood Transfusion Reactions: No Reported Reaction Smoking Status: Current every day smoker - Past Family History Mother Family Medical History: No Reported History Medications and Allergies Home Medications Medication Instructions Recorded Confirmed Type Bisacodyl [Dulcolax] 5 mg PO DAILY PRN #10 tablet. 05/26/19 Rx Hydrocodone/Acetaminophen [[place] 1 tab PO Q4HR PRN 3 Days #18 tab 05/26/19 Rx 5-325] Omeprazole 40 mg PO DAILY #30 capsule. 05/26/19 Rx Ondansetron Odt [Zofran Odt] 4 mg PO Q8HR PRN #9 tab 05/26/19 Rx Simethicone 40 mg/0.6 ml Drops 40 mg PO PCHS PRN #30 ml 05/26/19 Rx [Mylicon Drops] Sucralfate [Carafate] 1 gm PO BID #500 ml 05/26/19 Rx Allergies Allergy/AdvReac Type Severity Reaction Status Date / Time Sulfa (Sulfonamide Allergy Rash/Hives Verified 05/26/19 12:32 Antibiotics) Physical Exam Vitals: Vital Signs Temp Pulse Resp BP Pulse Ox 05/27/19 07:00 98.3 F 56 L 16 126/75 96 05/27/19 01:41 98.0 F 75 17 121/78 98 05/26/19 20:01 97 05/26/19 19:54 97.6 F 73 18 119/75 97 05/26/19 16:00 52 L 16 05/26/19 15:25 52 L 120/80 93 L 05/26/19 15:10 51 L 119/76 94 L 05/26/19 15:08 95 05/26/19 14:55 54 L 118/75 93 L 05/26/19 14:40 55 L 120/76 93 L 05/26/19 14:25 50 L 116/77 93 L 05/26/19 14:10 49 L 112/75 94 L 05/26/19 13:55 50 L 121/78 92 L 05/26/19 13:40 49 L 112/75 93 L 05/26/19 13:33 98.1 F 51 L 16 120/77 95 05/26/19 13:25 52 L 120/77 96 05/26/19 13:02 45 L 14 118/57 99 05/26/19 12:48 43 L 16 128/60 99 05/26/19 12:30 46 L 16 127/57 99 05/26/19 12:19 98.5 F 65 16 133/61 94 L Intake and Output 05/26/19 05/27/19 05/27/19 22:59 06:59 14:59 Other: Voiding Method Toilet Toilet # Voids 2 Weight 124.284 kg GENERAL EXAM GEN. APPEARANCE: alert, in no apparent distress HEAD EXAM: atraumatic, normocephalic, normal inspection EYE EXAM: No pallor. No icterus RESPIRATORY EXAM: Bilateral breath sounds are positive. No wheeze or crackles. CARDIOVASCULAR EXAM: S1 and S2 heard. GI/ABDOMINAL EXAM: soft, nontender, hyperactive bowel sounds. EXTREMITIES EXAM: No edema NEUROLOGICAL EXAM: alert, oriented X3, no focal neurological deficits PSYCHIATRIC EXAM: Patient is tearful SKIN EXAM: warm, dry, intact, normal color. Absent: rash Results CBC & Chem 7: 05/27/19 08:02 05/27/19 08:02 Labs: Abnormal Lab Results - Last 24 Hours (Table) 05/27/19 05/27/19 Range/Units 08:02 08:02 WBC 14.8 H (3.8-10.6) k/uL Neutrophils # 11.6 H (1.3-7.7) k/uL Chloride 110 H (98-107) mmol/L Carbon Dioxide 21 L (22-30) mmol/L Calcium 8.1 L (8.4-10.2) mg/dL Magnesium 2.5 H (1.6-2.3) mg/dL Thrombosis Risk Factor Assmnt - Choose All That Apply Each Factor Represents 1 point: Age 41-60 years, Obesity (BMI >25) Each Risk Factor Represents 2 Points: Laparoscopic surgery, Major surgery Thrombosis Risk Factor Assessment Total Risk Factor Score: 6 Thrombosis Risk Factor Assessment Level: High Risk ASSESSMENT Status post laparoscopic sleeve gastrectomy- postop day 1 Morbid obesity with a BMI of 42 GERD Hiatal hernia Chronic diarrhea Bipolar disorder - with depression Leukocytosis - reactive PLAN: Patient has been started on clear liquids. As the patient complains of low mood, she is advised to be restarted on Cariprazine 1.5 mg daily. Rest of the management as per primary care team. Thank you for the consult.
[2019-05-27] MEDS ORDERED: MD COMMUNICATION TO PHARMACY 1 EACH MISC PO SCH (13:00)
[2019-05-27] MEDS: ENOXAPARIN 40 MG/0.4 ML SYRINGE SQ SCH (13:04)
[2019-05-27] MEDS: VRAYLAR 1.5 MG PO SCH (13:25)
[2019-05-27] MEDS: LACTATED RINGERS 1,000 ML IV SCH (17:10)
[2019-05-28] MEDS: ENOXAPARIN 40 MG/0.4 ML SYRINGE SQ SCH ×2 (00:04→10:02)
[2019-05-28 07:05] VITALS: RESP 15
[2019-05-28] MEDS: 1: MVI, ADULT NO.4 WITH VIT K 10 ML, THIAMINE 100 MG, FOLIC ACID 1 MG, POTASSIUM CHLORID IV SCH ×6 (07:17)
[2019-05-28 07:35] LABS: Basophils # (A) 0.1 k/uL (0-0.2); Basophils % (A) 1 %; Eosinophils # (A) 0.5 k/uL (0-0.7); Eosinophils % (A) 5 %; HCT 36.9 % (34.0-46.0); HGB 11.9 gm/dL (11.4-16.0); Lymphocytes # (A) 1.8 k/uL (1.0-4.8); Lymphocytes % (A) 20 %; MCH 29.4 pg (25.0-35.0); MCHC 32.2 g/dL (31.0-37.0); MCV 91.2 fL (80.0-100.0); Mean Platelet Volume 7.8; Monocytes # (A) 0.4 k/uL (0-1.0); Monocytes % (A) 5 %; Neutrophils # (A) 6.4 k/uL (1.3-7.7); Neutrophils % (A) 69 %; Platelet Count 223 k/uL (150-450); RBC 4.04 m/uL (3.80-5.40); RDW 13.8 % (11.5-15.5); WBC 9.2 k/uL (3.8-10.6)
[2019-05-28 07:52] LABS: African American GFR (CKD) >90 (>60 ml/min/1.73 sqM); Anion Gap 6 mmol/L; Blood Urea Nitrogen 9 mg/dL (7-17); Calcium 8.3 mg/dL (8.4-10.2); Carbon Dioxide 22 mmol/L (22-30); Chloride 109 mmol/L (98-107); Glucose 80 mg/dL (74-99); Potassium 4.3 mmol/L (3.5-5.1); Sodium 137 mmol/L (137-145)
[2019-05-28] MEDS: ALBUTEROL NEBULIZED 2.5 MG/3 ML INHALATION SCH ×2 (08:15→11:38)
[2019-05-28] MEDS: PANTOPRAZOLE 40 MG/10 ML VIAL IV SCH (10:02)
[2019-05-28] MEDS: VRAYLAR 1.5 MG PO SCH (10:12)
[2019-05-28 11:53] VITALS: TEMP 98.7
--- NOTE | 2019-05-28 12:44 | P.PN ---
Subjective Progress Note Date: 05/28/19 Principal diagnosis: Status post laparoscopic sleeve gastrectomy- postop day 2 Ms. Ward is a 43-year-old female with a past medical history of GERD, morbid obesity admitted to the hospital for laparoscopic sleeve gastrectomy. She is postoperative day 2 today. She is sitting up comfortably in a chair by the bedside. No acute overnight events reported by nursing staff. She is able to tolerate clear liquids without any nausea or vomiting this morning. She complains of abdominal soreness but no pain. She is passing gas but did not have a bowel movement yet. Patient denies having any fevers chills or rigors. No cough or difficulty in breathing. No chest pain or palpitations. No dysuria or hematuria. Active Medications Hydrocodone Bitart/Acetaminophen ([place]iquiu Elixir 7.5-325mg/15ml) 30 ml PO Q6HR PRN PRN Reason: Severe Pain Last Admin: 05/27/19 13:04 Dose: 30 ml Documented by: Albuterol Sulfate (Ventolin Nebulized) 2.5 mg INHALATION RT-QID [facility] Last Admin: 05/28/19 11:38 Dose: Not Given Documented by: Diphenhydramine HCl (Benadryl) 25 mg IVP Q6HR PRN PRN Reason: Itching Last Admin: 05/26/19 12:53 Dose: 25 mg Documented by: Enoxaparin Sodium (Lovenox) 40 mg SQ Q12H [facility] Last Admin: 05/28/19 10:02 Dose: 40 mg Documented by: Hydromorphone HCl (Dilaudid) 1 mg IVP Q3HR PRN PRN Reason: Pain Last Admin: 05/27/19 13:25 Dose: 1 mg Documented by: Hyoscyamine (Levsin Drops) 0.125 mg PO Q6HR PRN PRN Reason: Esophageal Spasm Last Admin: 05/26/19 16:09 Dose: 0.125 mg Documented by: Lactated Ringer's (Lactated Ringers) 1,000 mls @ 20 mls/hr IV .Q24H [facility] Last Admin: 05/27/19 17:10 Dose: Not Given Documented by: Parenteral Vitamin Supplement 10 ml/ Thiamine HCl 100 mg/Folic Acid 1 mg/ Potassium Chloride 20 meq/ Sodium Chloride 1,021.2 mls @ 100 mls/hr IV .BY DURATION [facility] Last Admin: 05/28/19 07:17 Dose: 100 mls/hr Documented by: Potassium Chloride/Sodium Chloride (Ns-Kcl 20 Meq/L Iv Solution) 1,000 mls @ 100 mls/hr IV .BY DURATION [facility] Last Admin: 05/27/19 17:10 Dose: Not Given Documented by: Naloxone HCl (Narcan) 0.2 mg IV Q2M PRN PRN Reason: Opioid Reversal Vraylar (Cariprazine () 1.5mg Capsule) 1 each PO DAILY [facility] Last Admin: 05/28/19 10:12 Dose: 1 each Documented by: Ondansetron HCl (Zofran) 4 mg IVP Q8HR PRN PRN Reason: Nausea And Vomiting Last Admin: 05/27/19 19:15 Dose: 4 mg Documented by: Pantoprazole Sodium (Protonix) 40 mg IV DAILY [facility] Last Admin: 05/28/19 10:02 Dose: 40 mg Documented by: Simethicone (Mylicon Drops) 40 mg PO Q6HR PRN PRN Reason: Bloating Last Admin: 05/26/19 16:11 Dose: 40 mg Documented by: Objective - Vital Signs Vital signs: Vital Signs Temp 98.7 F 05/28/19 11:51 Pulse 54 L 05/28/19 11:51 Resp 15 05/28/19 07:00 BP 114/62 05/28/19 11:51 Pulse Ox 97 05/28/19 11:51 Intake & Output 05/27/19 05/28/19 05/28/19 18:59 06:59 18:59 Intake Total 0 1021.2 Balance 0 1021.2 Weight 124.284 kg Intake: Intake, IV Titration 1021.2 Amount Mvi, Adult No.4 with Vit 1021.2 K 10 ml Thiamine 100 mg Folic Acid 1 mg Potassium Chloride 20 meq In Sodium Chloride 0.9% 1, 000 ml @ 100 mls/hr IV . BY DURATION [facility] Rx#: [id number] Oral 0 Other: Voiding Method Toilet Toilet Toilet # Voids 2 2 - Exam GEN. APPEARANCE: alert, in no apparent distress HEAD EXAM: atraumatic, normocephalic, normal inspection EYE EXAM: No pallor. No icterus RESPIRATORY EXAM: Bilateral breath sounds are positive. No wheeze or crackles. CARDIOVASCULAR EXAM: S1 and S2 heard. GI/ABDOMINAL EXAM: soft, nontender, hyperactive bowel sounds. EXTREMITIES EXAM: No edema NEUROLOGICAL EXAM: alert, oriented X3, no focal neurological deficits PSYCHIATRIC EXAM: Patient is tearful SKIN EXAM: warm, dry, intact, normal color. Absent: rash - Labs CBC & Chem 7: 05/28/19 07:05 05/28/19 07:05 Labs: Abnormal Lab Results - Last 24 Hours (Table) 05/28/19 Range/Units 07:05 Chloride 109 H (98-107) mmol/L Calcium 8.3 L (8.4-10.2) mg/dL Assessment and Plan Assessment: ASSESSMENT Status post laparoscopic sleeve gastrectomy- postop day 2 Morbid obesity with a BMI of 42 GERD Hiatal hernia Chronic diarrhea Bipolar disorder - with depression Leukocytosis - resolved PLAN: Patient is tolerating by mouth clear liquids without any nausea or vomiting. She is passing gas but didn't have a bowel movement. Continue with GI DVT prophylaxis. She has been restarted on her home antidepressant medi cation, she reports her mood is a little better today. Continue with the rest of her current medication regimen. Further recommendations to follow depending on the progress of the patient.
--- NOTE | 2019-05-28 12:56 | P.DS ---
Providers Date of admission: 05/26/19 07:11 Expected date of discharge: 05/28/19 Attending physician: Ricky Hopkins Consults: 05/26/19 12:03 Consult Physician Routine Consulting Provider: Ellie Singh Consult Reason/Comments: Medical management Do you want consulting provider notified?: Yes Primary care physician: Jose Waters [place] [facility] Course: This a 43-year-old female who underwent laparoscopic sleeve gastrectomy. Please see hospital chart for details. Procedures: Laparoscopic sleeve gastrectomy Patient Condition at Discharge: Good Plan - Discharge Summary Discharge Rx Participant: Yes New Discharge Prescriptions: New Sucralfate [Carafate] 1 gm PO BID #500 ml Bisacodyl [Dulcolax] 5 mg PO DAILY PRN #10 tablet. PRN Reason: Constipation Simethicone 40 mg/0.6 ml Drops [Mylicon Drops] 40 mg PO PCHS PRN #30 ml PRN Reason: gas Hydrocodone/Acetaminophen [[place] 5-325] 1 tab PO Q4HR PRN 3 Days #18 tab PRN Reason: Pain Omeprazole 40 mg PO DAILY #30 capsule. Ondansetron Odt [Zofran Odt] 4 mg PO Q8HR PRN #9 tab PRN Reason: Nausea Sucralfate [Carafate] 1 gm PO BID #60 tab HYDROcodone/APAP 5-325MG [[place] 5-325] 1 tab PO Q6HR PRN #10 tab PRN Reason: Pain Omeprazole 40 mg PO DAILY #60 capsule. Discharge Medication List Bisacodyl [Dulcolax] 5 mg PO DAILY PRN #10 tablet. 05/26/19 [Rx] Hydrocodone/Acetaminophen [[place] 5-325] 1 tab PO Q4HR PRN 3 Days #18 tab 05/26/19 [Rx] Omeprazole 40 mg PO DAILY #30 capsule. 05/26/19 [Rx] Ondansetron Odt [Zofran Odt] 4 mg PO Q8HR PRN #9 tab 05/26/19 [Rx] Simethicone 40 mg/0.6 ml Drops [Mylicon Drops] 40 mg PO PCHS PRN #30 ml 05/26/19 [Rx] Sucralfate [Carafate] 1 gm PO BID #500 ml 05/26/19 [Rx] HYDROcodone/APAP 5-325MG [[place] 5-325] 1 tab PO Q6HR PRN #10 tab 05/28/19 [Rx] Omeprazole 40 mg PO DAILY #60 capsule. 05/28/19 [Rx] Sucralfate [Carafate] 1 gm PO BID #60 tab 05/28/19 [Rx] Follow up Appointment(s)/Referral(s): Ricky Hopkins MD [STAFF PHYSICIAN] - 1 Week Activity/Diet/Wound Care/Special Instructions: No driving while taking [place] No lifting over 10 pounds You may shower. No soaking or tub baths Very light activity until you are reevaluated at your follow up appointment with your surgeon
[2019-05-28 14:04] VITALS: BP 115/80; PULSE 56
== END 2019-05-28 14:35 | disposition home or self-care (01) | DRG 621 ==
LOC: 2ORMAIN 07:11 → 4SSUR 12:27
PROVIDERS: ADMIT Surgery; ATTEND Surgery
PROC: 0DB64Z3 Excision of Stomach, Percutaneous Endoscopic Approach, Vertical (ICD-10-PCS; principal; 2019-05-26 09:00)
DX: E66.01 Morbid (severe) obesity due to excess calories (principal); Z68.41 Body mass index [BMI] 40.0-44.9, adult; F17.200 Nicotine dependence, unspecified, uncomplicated; F31.9 Bipolar disorder, unspecified; K44.9 Diaphragmatic hernia without obstruction or gangrene; K52.9 Noninfective gastroenteritis and colitis, unspecified; K21.9 Gastro-esophageal reflux disease without esophagitis; Z90.49 Acquired absence of other specified parts of digestive tract; Z90.710 Acquired absence of both cervix and uterus; Z88.2 Allergy status to sulfonamides
CPT/HCPCS: 74240; 80048; 80051; 82310; 82565; 83735; 84100; 84520; 85025; 88307; 94640; 94760

== ENCOUNTER → 2019-06-06 | Outpatient (CLI) | payer BC | END | disposition home or self-care (01) | CPT/HCPCS: 97802; 99211 ==

== ENCOUNTER → 2019-06-12 | Outpatient (CLI) | payer BC ==
[2019-06-12 15:35] VITALS: BP 106/71; PULSE 76; TEMP 98.2; BMI 38.2
--- NOTE | 2019-06-12 16:34 | P.HPBAR ---
Bariatric H&P - History & Physicial H&P Date: 06/12/19 History & Physicial: Visit/CC: Patient initial contact: Initial weight: 125.963 kg Initial weight in pounds: 277.70 Height: 5 ft 8 in Initial BMI: 42.2 Last weight: Current weight: 114.305 kg Current weight in pounds: 252.00 Current BMI: 38.2 [place] body weight (based on NIH guidelines): 63.503 kg Excess body weight loss: 18.6% The patient is a 43 year-old F who presents for Bariatric Assessment. Patient presents for sleeve gastrectomy follow-up. She has some booklets of GERD. Past Medical History Past Medical History: No Reported History Additional Past Medical History / Comment(s): BIPOLAR, DEPRESSION, VALVE LEAKS,. ABdominal pain and diarrhea History of Any Multi-Drug Resistant Organisms: None Reported Past Surgical History: Bariatric Surgery, Cholecystectomy, Hysterectomy Additional Past Surgical History / Comment(s): sleeve gastrectomy 05-26-19 Past Anesthesia/Blood Transfusion Reactions: No Reported Reaction Smoking Status: Current every day smoker - Past Family History Mother Family Medical History: No Reported History Surgical - Exam Vital Signs Temp Pulse BP 98.2 F 76 106/71 06/12/19 15:07 06/12/19 15:07 06/12/19 15:07 - General well developed, well nourished, no distress - Eyes PERRL - ENT normal pinna - Respiratory normal expansion - Cardiovascular Rhythm: regular - Abdomen Abdomen: soft, non tender Bariatric Assessment & Plan Plan: Status post sleeve gastrectomy. Patient GERD is minimal old observed. She'll follow-up in 4 weeks. Bariatric Checklist Checklist: Plan: Checklist: EGD: 1. Hiatal hernia: 2. H. Pylori: HgbA1c: Vitamin D: Smoking: Current every day smoker Primary care physician referral: dr muhammad Psychiatry clearance: Cardiology clearance: Sleep study: Diet journal: VTE risk score: VTE risk level: Rehab needs at discharge:
== END | disposition home or self-care (01) ==
LOC: BARWHC3 14:43
PROVIDERS: ATTEND Surgery
DX: Z48.815 Encounter for surgical aftercare following surgery on the digestive system (principal); K21.9 Gastro-esophageal reflux disease without esophagitis; F17.200 Nicotine dependence, unspecified, uncomplicated; Z90.3 Acquired absence of stomach [part of]; Z90.49 Acquired absence of other specified parts of digestive tract
CPT/HCPCS: 99211

== ENCOUNTER 2019-06-28 16:08 | Emergency (ER) | payer BC ==
[2019-06-28 16:54] VITALS: RESP 18
[2019-06-28] MEDS ORDERED: SODIUM CHLORIDE 0.9% 1,000 ML IV ONE (17:14)
[2019-06-28] MEDS ORDERED: ONDANSETRON 4 MG/2 ML VIAL IVP STA (17:14)
[2019-06-28] MEDS ORDERED: ACETAMINOPHEN TAB 325 MG TAB PO STA (17:14)
[2019-06-28 17:33] LABS: Basophils % (A) 0 %; Eosinophils # (A) 0.5 k/uL (0-0.7); Eosinophils % (A) 6 %; HCT 41.4 % (34.0-46.0); HGB 13.5 gm/dL (11.4-16.0); Lymphocytes # (A) 1.7 k/uL (1.0-4.8); Lymphocytes % (A) 23 %; MCH 29.3 pg (25.0-35.0); MCHC 32.6 g/dL (31.0-37.0); MCV 89.8 fL (80.0-100.0); Mean Platelet Volume 7.9; Monocytes # (A) 0.3 k/uL (0-1.0); Monocytes % (A) 5 %; Neutrophils # (A) 4.7 k/uL (1.3-7.7); Neutrophils % (A) 65 %; Platelet Count 234 k/uL (150-450); RBC 4.61 m/uL (3.80-5.40); RDW 12.6 % (11.5-15.5); WBC 7.3 k/uL (3.8-10.6)
[2019-06-28 17:36] LABS: Color,Urine Dark Brown
[2019-06-28 17:37] LABS: Appearance,Urine Cloudy (Clear); Bacteria,Urine Occasional /hpf; Bilirubin,Urine 1+ (Negative); Blood,Urine Small (Negative); Glucose,Urine (UA) Negative (Negative); Hyaline Casts,Urine 50 /lpf (0-2); Ketones,Urine 1+ (Negative); Leukocyte Esterase,Urine Small (Negative); Mucus,Urine Many /hpf; Nitrite,Urine Positive (Negative); Protein,Urine 2+ (Negative); RBC,Urine 3 /hpf (0-5); Specific Gravity,Urine 1.039 (1.001-1.035); Squamous Epithelial Cell,Urine 9 /hpf (0-4)
[2019-06-28 17:41] LABS: INR 0.9 (<1.2); Partial Thromboplastin Time 26.6 sec (22.0-30.0); Prothrombin Time 9.9 sec (9.0-12.0)
[2019-06-28 17:46] LABS: Calcium 9.2 mg/dL (8.4-10.2); Potassium 3.1 mmol/L (3.5-5.1); Total Bilirubin 0.9 mg/dL (0.2-1.3); Total Protein 6.6 g/dL (6.3-8.2)
[2019-06-28] MEDS ORDERED: POTASSIUM CHLORIDE ER 20 MEQ TAB.ER PO STA (17:57)
--- NOTE | 2019-06-28 18:02 | ED ---
Abdominal Pain HPI - General Chief Complaint: Abdominal Pain Stated Complaint: DIARRHEA, VOMITING Time Seen by Provider: 06/28/19 16:54 Source: patient Mode of arrival: ambulatory Limitations: no limitations - History of Present Illness Initial Comments: The patient is a 43-year-old female who presents to the emergency room with reported abdominal cramping, vomiting and diarrhea. She is postoperative bariatric sleeve on May [address] Hopkins. States that postop she has had some issues with nausea and vomiting. States she has been on a very restricted diet. States that she had worsening nausea over the past several days. Yesterday she did develop loose, watery stools. Denies any black or tarry stools. Denies bright red blood per rectum. She called the office and they told her to increase her water intake. Patient states she's been doing this however she's had decreased frequency of urination. Also admits to dark colored urine. States she has been unable to tolerate any food. She called the office once again today and they requested that she go to the emergency room for evaluation. She does admit to bilateral lower abdominal cramping. She's had 3 episodes of diarrhea daily. She denies any recent antibiotic use or travel. No fevers or chills. There are no alleviating, precipitating or modifying factors - Related Data Home Medications Medication Instructions Recorded Confirmed Sucralfate [Carafate] 1 gm PO BID 06/28/19 06/28/19 Previous Rx's Medication Instructions Recorded Omeprazole 40 mg PO DAILY #60 capsule. 05/28/19 Cephalexin [Keflex] 500 mg PO Q12HR #10 cap 06/28/19 Dicyclomine [Bentyl] 10 mg PO TID PRN #30 tablet 06/28/19 Ondansetron Odt [Zofran Odt] 4 mg PO Q8HR PRN #12 tab 06/28/19 Allergies Allergy/AdvReac Type Severity Reaction Status Date / Time Sulfa (Sulfonamide Allergy Rash/Hives Verified 06/28/19 17:01 Antibiotics) Review of Systems ROS Statement: Those systems with pertinent positive or pertinent negative responses have been documented in the HPI. ROS Other: All systems not noted in ROS Statement are negative. Past Medical History Past Medical History: No Reported History Additional Past Medical History / Comment(s): BIPOLAR, DEPRESSION, VALVE LEAKS,. ABdominal pain and diarrhea History of Any Multi-Drug Resistant Organisms: None Reported Past Surgical History: Bariatric Surgery, Cholecystectomy, Hysterectomy Additional Past Surgical History / Comment(s): sleeve gastrectomy 05-26-19 Past Anesthesia/Blood Transfusion Reactions: No Reported Reaction Past Psychological History: Bipolar, Depression Smoking Status: Current every day smoker Past Alcohol Use History: None Reported Past Drug Use History: None Reported - Past Family History Mother Family Medical History: No Reported History General Exam Limitations: no limitations General appearance: alert, in no apparent distress Head exam: Present: atraumatic, normocephalic, normal inspection Eye exam: Present: normal appearance, PERRL, EOMI. Absent: scleral icterus, conjunctival injection, periorbital swelling ENT exam: Present: normal exam, mucous membranes moist Neck exam: Present: normal inspection. Absent: tenderness, meningismus, lymphad enopathy Respiratory exam: Present: normal lung sounds bilaterally. Absent: respiratory distress, wheezes, rales, rhonchi, stridor Cardiovascular Exam: Present: regular rate, normal rhythm, normal heart sounds. Absent: systolic murmur, diastolic murmur, rubs, gallop, clicks GI/Abdominal exam: Present: soft, tenderness (mild tenderness suprapubic region), normal bowel sounds. Absent: distended, guarding, rebound, rigid Rectal exam: Present: deferred Extremities exam: Present: normal inspection, full ROM, normal capillary refill. Absent: tenderness, pedal edema, joint swelling, calf tenderness Back exam: Present: normal inspection Neurological exam: Present: alert, oriented X3, CN II-XII intact Psychiatric exam: Present: normal affect, normal mood Skin exam: Present: warm, dry, intact, normal color. Absent: rash Course Vital Signs 06/28/19 06/28/19 06/28/19 16:51 18:24 19:08 Temperature 98.9 F 97.9 F 98.3 F Pulse Rate 66 56 L 50 L Respiratory 18 18 18 Rate Blood Pressure 108/58 121/57 103/63 O2 Sat by Pulse 98 100 99 Oximetry Medical Decision Making - Medical Decision Making Upon arrival the patient is placed in room 26. She is hooked up to continuous pulse ox and cardiac monitoring. Peripheral IV is established. The patient is given a liter bolus of 0.9 normal saline. She is also given 650 mg of Tylenol and 4 mg of Zofran. Laboratory studies were conducted and the patient was sent for CT for abdomen and pelvis. Upon return, the results are discussed patient. Her blood work is remarkable for a potassium of 3.1. I did replace the patient's potassium. Urinalysis is remarkable for nitrite positive bacteria. I did provide the patient with 1 gram of Rocephin. I did call and discuss the case with Dr. Hogan. Patient is a follow-up at her appointment scheduled for Wednesday. He did agree to treatment with Keflex, Zofran and Bentyl at home. Patient was reevaluated and admitted to improvement in her symptoms. She'll be discharged home at this time. If she has any new or worsening symptoms, she should return to the emergency room. The patient was in agreement with the treatment plan and she was discharged home in stable condition - Differential Diagnosis acute abd pain, acute uti, hypokalemia, s/p bariatric surgery - Lab Data Result diagrams: 06/28/19 17:18 06/28/19 17:18 Lab Results 06/28/19 06/28/19 06/28/19 Range/Units 17:18 17:18 17:18 WBC 7.3 (3.8-10.6) k/uL RBC 4.61 (3.80-5.40) m/uL Hgb 13.5 (11.4-16.0) gm/dL Hct 41.4 (34.0-46.0) % MCV 89.8 (80.0-100.0) fL MCH 29.3 (25.0-35.0) pg MCHC 32.6 (31.0-37.0) g/dL RDW 12.6 (11.5-15.5) % Plt Count 234 (150-450) k/uL Neutrophils % 65 % Lymphocytes % 23 % Monocytes % 5 % Eosinophils % 6 % Basophils % 0 % Neutrophils # 4.7 (1.3-7.7) k/uL Lymphocytes # 1.7 (1.0-4.8) k/uL Monocytes # 0.3 (0-1.0) k/uL Eosinophils # 0.5 (0-0.7) k/uL Basophils # 0.0 (0-0.2) k/uL PT (9.0-12.0) sec INR (<1.2) APTT (22.0-30.0) sec Sodium 140 (137-145) mmol/L Potassium 3.1 L (3.5-5.1) mmol/L Chloride 104 (98-107) mmol/L Carbon Dioxide 28 (22-30) mmol/L Anion Gap 8 mmol/L BUN 12 (7-17) mg/dL Creatinine 1.01 (0.52-1.04) mg/dL Est GFR (CKD-EPI)AfAm 78 (>60 ml/min/1.73 sqM) Est GFR (CKD-EPI)NonAf 68 (>60 ml/min/1.73 sqM) Glucose 88 (74-99) mg/dL Plasma Lactic Acid Emerson 0.9 (0.7-2.0) mmol/L Calcium 9.2 (8.4-10.2) mg/dL Total Bilirubin 0.9 (0.2-1.3) mg/dL AST 22 (14-36) U/L ALT 23 (9-52) U/L Alkaline Phosphatase 66 (38-126) U/L Total Protein 6.6 (6.3-8.2) g/dL Albumin 4.0 (3.5-5.0) g/dL Lipase 90 (23-300) U/L Urine Color Urine Appearance (Clear) Urine pH (5.0-8.0) Ur Specific [place] (1.001-1.035) Urine Protein (Negative) Urine Glucose (UA) (Negative) Urine Ketones (Negative) Urine Blood (Negative) Urine Nitrite (Negative) Urine Bilirubin (Negative) Urine Urobilinogen (<2.0) mg/dL Ur Leukocyte Esterase (Negative) Urine RBC (0-5) /hpf Urine WBC (0-5) /hpf Ur Squamous Epith Cells (0-4) /hpf Urine Bacteria (None) /hpf Hyaline Casts (0-2) /lpf Urine Mucus (None) /hpf 06/28/19 06/28/19 Range/Units 17:18 17:18 WBC (3.8-10.6) k/uL RBC (3.80-5.40) m/uL Hgb (11.4-16.0) gm/dL Hct (34.0-46.0) % MCV (80.0-100.0) fL MCH (25.0-35.0) pg MCHC (31.0-37.0) g/dL RDW (11.5-15.5) % Plt Count (150-450) k/uL Neutrophils % % Lymphocytes % % Monocytes % % Eosinophils % % Basophils % % Neutrophils # (1.3-7.7) k/uL Lymphocytes # (1.0-4.8) k/uL Monocytes # (0-1.0) k/uL Eosinophils # (0-0.7) k/uL Basophils # (0-0.2) k/uL PT 9.9 (9.0-12.0) sec INR 0.9 (<1.2) APTT 26.6 (22.0-30.0) sec Sodium (137-145) mmol/L Potassium (3.5-5.1) mmol/L Chloride (98-107) mmol/L Carbon Dioxide (22-30) mmol/L Anion Gap mmol/L BUN (7-17) mg/dL Creatinine (0.52-1.04) mg/dL Est GFR (CKD-EPI)AfAm (>60 ml/min/1.73 sqM) Est GFR (CKD-EPI)NonAf (>60 ml/min/1.73 sqM) Glucose (74-99) mg/dL Plasma Lactic Acid Emerson (0.7-2.0) mmol/L Calcium (8.4-10.2) mg/dL Total Bilirubin (0.2-1.3) mg/dL AST (14-36) U/L ALT (9-52) U/L Alkaline Phosphatase (38-126) U/L Total Protein (6.3-8.2) g/dL Albumin (3.5-5.0) g/dL Lipase (23-300) U/L Urine Color Dark Brown Urine Appearance Cloudy H (Clear) Urine pH 6.0 (5.0-8.0) Ur Specific [place] 1.039 H (1.001-1.035) Urine Protein 2+ H (Negative) Urine Glucose (UA) Negative (Negative) Urine Ketones 1+ H (Negative) Urine Blood Small H (Negative) Urine Nitrite Positive H (Negative) Urine Bilirubin 1+ H (Negative) Urine Urobilinogen 4.0 (<2.0) mg/dL Ur Leukocyte Esterase Small H (Negative) Urine RBC 3 (0-5) /hpf Urine WBC 30 H (0-5) /hpf Ur Squamous Epith Cells 9 H (0-4) /hpf Urine Bacteria Occasional H (None) /hpf Hyaline Casts 50 H (0-2) /lpf Urine Mucus Many H (None) /hpf Disposition Clinical Impression: Nausea & vomiting, Diarrhea, Acute UTI Disposition: HOME SELF-CARE Condition: Stable Instructions (If sedation given, give patient instructions): Acute Nausea and Vomiting (ED) Additional Instructions: Please follow-up with Dr. Hopkins on Wednesday at your scheduled appointment. Return to the emergency department for any new or worsening symptoms Prescriptions: Dicyclomine [Bentyl] 10 mg PO TID PRN #30 tablet PRN Reason: Diarrhea Cephalexin [Keflex] 500 mg PO Q12HR #10 cap Ondansetron Odt [Zofran Odt] 4 mg PO Q8HR PRN #12 tab PRN Reason: Nausea Is patient prescribed a controlled substance at d/c from ED?: No Referrals: Evelin Garcia MD [Primary Care Provider] - 1-2 days Time of Disposition: 18:53
--- NOTE | 2019-06-28 18:30 | CT ---
EXAMINATION TYPE: CT abdomen pelvis w con DATE OF EXAM: 06/28/2019 COMPARISON: 08/15/2015 HISTORY: nausea, vomiting, diarrhea CT DLP: 1631.9 mGycm Automated exposure control for dose reduction was used. TECHNIQUE: Helical acquisition of images was performed from the lung bases through the pelvis. CONTRAST: Performed without Oral Contrast and with IV Contrast, patient injected with 100 mL of Isovue 300. FINDINGS: There is hiatal hernia. There are clips from gastric apparent bariatric surgery. Heart size is normal . There is no pericardial effusion. There are clips from cholecystectomy. Liver appears normal. Bile ducts are not dilated. Spleen and pancreas appear normal. There is no adrenal mass. Kidneys show satisfactory contrast opacification. There is [address] anterior right kidney. There is no hydronephrosis. There is no retroperitoneal adenopathy. Bladder distends smoothly. There is no inguinal hernia. There is no mesenteric edema. There is no ascites or free air. There is no sign of a bowel obstructio n. Appendix appears normal. There is surgical clip in the anterior mid abdomen. There is no evidence of a hernia. IMPRESSION: THERE IS APPARENT BARIATRIC SURGERY SINCE LAST EXAM. NO SIGN OF ACUTE ABDOMEN AND PELVIS. HIATAL JEREMY IA.
[2019-06-28 19:12] VITALS: BP 103/63; PULSE 50; TEMP 98.3
== END 2019-06-28 19:12 | disposition home or self-care (01) ==
LOC: EC 16:08
DX: N39.0 Urinary tract infection, site not specified (principal); R19.7 Diarrhea, unspecified; R11.2 Nausea with vomiting, unspecified; F17.200 Nicotine dependence, unspecified, uncomplicated; Z79.899 Other long term (current) drug therapy; Z88.2 Allergy status to sulfonamides; Z98.84 Bariatric surgery status; Z90.49 Acquired absence of other specified parts of digestive tract; Z90.710 Acquired absence of both cervix and uterus
CPT/HCPCS: 99284; 36415; 80053; 83605; 83690; 85025; 85610; 85730; 81001; 87086; 87077; 87186; 74177; 96365; 96375; J2405; J0696; Q9967

== ENCOUNTER → 2019-07-03 | Outpatient (CLI) | payer BC ==
[2019-07-03 14:09] VITALS: BP 114/56; PULSE 16; RESP 16; TEMP 98.2
[2019-07-03 14:13] VITALS: BMI 37.0
--- NOTE | 2019-07-03 15:58 | P.HPBAR ---
Bariatric H&P - History & Physicial H&P Date: 07/03/19 History & Physicial: Visit/CC: POST-SURG Patient initial contact: Initial weight: 125.963 kg Initial weight in pounds: 277.70 Height: 5 ft 8 in Initial BMI: 42.2 Last weight: Current weight: 110.677 kg Current weight in pounds: 244.00 Current BMI: 37.0 [place] body weight (based on NIH guidelines): 63.503 kg Excess body weight loss: 24.4% The patient is a 43 year-old F who presents for Bariatric Assessment. Patient presents today for sleeve gastrectomy follow. She's had some minimal GERD. She is an excellent weight loss. Past Medical History Past Medical History: No Reported History Additional Past Medical History / Comment(s): BIPOLAR, DEPRESSION, VALVE LEAKS,. ABdominal pain and diarrhea History of Any Multi-Drug Resistant Organisms: None Reported Past Surgical History: Bariatric Surgery, Cholecystectomy, Hysterectomy Additional Past Surgical History / Comment(s): sleeve gastrectomy 05-26-19 Past Anesthesia/Blood Transfusion Reactions: No Reported Reaction Past Psychological History: Bipolar, Depression Smoking Status: Current every day smoker Past Alcohol Use History: None Reported Additional Past Alcohol Use History / Comment(s): smoker "few years 1/2 ppd" Past Drug Use History: None Reported - Past Family History Mother Family Medical History: No Reported History Surgical - Exam Vital Signs Temp Pulse Resp BP 98.2 F 16 L 16 114/56 07/03/19 14:04 07/03/19 14:04 07/03/19 14:04 07/03/19 14:04 - General well developed, well nourished, no distress - Abdomen Abdomen: soft, non tender Bariatric Assessment & Plan Plan: Status post sleeve gastrectomy. Patient is doing quite well. Her GERD is minimal obesity observed. She'll follow-up in 4 weeks. Bariatric Checklist Checklist: Plan: Checklist: EGD: 1. Hiatal hernia: 2. H. Pylori: HgbA1c: Vitamin D: Smoking: Current every day smoker Primary care physician referral: dr muhammad Psychiatry clearance: Cardiology clearance: Sleep study: Diet journal: VTE risk score: VTE risk level: Rehab needs at discharge:
== END ==
LOC: BARWHC3 13:41
PROVIDERS: ATTEND Surgery
DX: Z48.815 Encounter for surgical aftercare following surgery on the digestive system (principal); F17.210 Nicotine dependence, cigarettes, uncomplicated; E66.01 Morbid (severe) obesity due to excess calories; Z98.84 Bariatric surgery status; Z90.49 Acquired absence of other specified parts of digestive tract; Z68.37 Body mass index [BMI] 37.0-37.9, adult
CPT/HCPCS: 97803; 99211

== ENCOUNTER → 2019-08-21 | Outpatient (CLI) | payer BC ==
[2019-08-21 13:53] VITALS: BP 111/72; PULSE 65; TEMP 97.7; BMI 33.7
--- NOTE | 2019-08-21 14:14 | P.HPBAR ---
Bariatric H&P - History & Physicial H&P Date: 08/21/19 History & Physicial: Visit/CC: 3mos post sleeve (sx 05/26/19) Patient initial contact: Initial weight: 125.963 kg Initial weight in pounds: 277.70 Height: 5 ft 8 in Initial BMI: 42.2 Last weight: Current weight: 100.471 kg Current weight in pounds: 221.50 Current BMI: 33.7 [place] body weight (based on NIH guidelines): 63.503 kg Excess body weight loss: 40.8% The patient is a 43 year-old F who presents for Bariatric Assessment. Patient presents today for sleeve gastrectomy follow-up. She's had some issues with GERD and dysphagia. She describes a feeling of fullness and then intermittent vomiting. Past Medical History Past Medical History: No Reported History Additional Past Medical History / Comment(s): BIPOLAR, DEPRESSION, VALVE LEAKS,. ABdominal pain and diarrhea History of Any Multi-Drug Resistant Organisms: None Reported Past Surgical History: Bariatric Surgery, Cholecystectomy, Hysterectomy Additional Past Surgical History / Comment(s): sleeve gastrectomy 05-26-19 Past Anesthesia/Blood Transfusion Reactions: No Reported Reaction Smoking Status: Current every day smoker - Past Family History Mother Family Medical History: No Reported History Surgical - Exam Vital Signs Temp Pulse BP 97.7 F 65 111/72 08/21/19 13:48 08/21/19 13:48 08/21/19 13:48 - General well developed, well nourished, no distress - Eyes PERRL - ENT normal pinna - Neck no masses - Respiratory normal expansion - Cardiovascular Rhythm: regular - Abdomen Abdomen: soft, non tender Bariatric Assessment & Plan Plan: Status post sleeve gastrectomy. Patient had excellent weight loss. Patient will change her behavior with food. She will take smaller bites and avoid feeling overly full. She'll follow-up in 4 weeks. Bariatric Checklist Checklist: Plan: Checklist: EGD: 1. Hiatal hernia: 2. H. Pylori: HgbA1c: Vitamin D: Smoking: Current every day smoker Primary care physician referral: dr muhammad Psychiatry clearance: Cardiology clearance: Sleep study: Diet journal: VTE risk score: VTE risk level: Rehab needs at discharge:
== END | disposition home or self-care (01) ==
LOC: BARWHC3 13:03
PROVIDERS: ATTEND Surgery
DX: Z48.815 Encounter for surgical aftercare following surgery on the digestive system (principal); R13.10 Dysphagia, unspecified; K21.9 Gastro-esophageal reflux disease without esophagitis; F17.200 Nicotine dependence, unspecified, uncomplicated; R11.10 Vomiting, unspecified; Z98.84 Bariatric surgery status; Z90.49 Acquired absence of other specified parts of digestive tract; Z90.710 Acquired absence of both cervix and uterus
CPT/HCPCS: 99211

== ENCOUNTER → 2019-08-22 | Outpatient (CLI) | payer BC ==
[2019-08-22 14:19] LABS: HCT 42.6 % (34.0-46.0); Mean Platelet Volume 7.3; Platelet Count 223 k/uL (150-450); RBC 4.68 m/uL (3.80-5.40); RDW 12.4 % (11.5-15.5); WBC 6.7 k/uL (3.8-10.6)
[2019-08-22 18:49] LABS: African American GFR (CKD) 103.2 (60.0-200.0); Albumin 3.6 g/dL (3.80-4.90); Anion Gap 7.6 mmol/L (4.00-12.00); BUN/Creat Ratio 12.5 Ratio (12.00-20.00); Calcium 8.8 mg/dL (8.7-10.3); Carbon Dioxide 30.4 mmol/L (21.6-31.8); Globulin 1.8 g/dL (1.6-3.3); Potassium 3.4 mmol/L (3.5-5.5); Total Bilirubin 0.8 mg/dL (0.2-1.2); Total Protein 5.4 g/dL (6.2-8.2)
== END | disposition home or self-care (01) ==
LOC: LABWHC1 13:25
PROVIDERS: ATTEND Surgery Plastic and Reconstructive Surgery
DX: E55.9 Vitamin D deficiency, unspecified (principal); E45 Retarded development following protein-calorie malnutrition; E66.01 Morbid (severe) obesity due to excess calories
CPT/HCPCS: 36415; 80053; 82306; 82607; 84425; 85027

== ENCOUNTER → 2019-10-02 | Outpatient (CLI) | payer BC ==
[2019-10-02 13:12] VITALS: BP 122/66; PULSE 68; RESP 16; TEMP 97.7; BMI 31.9
--- NOTE | 2019-10-02 14:05 | P.HPBAR ---
Bariatric H&P - History & Physicial H&P Date: 10/02/19 History & Physicial: Visit/CC: sleeve f/u Patient initial contact: Initial weight: 125.963 kg Initial weight in pounds: 277.70 Height: 5 ft 8 in Initial BMI: 42.2 Last weight: Current weight: 95.254 kg Current weight in pounds: 210.00 Current BMI: 31.9 [place] body weight (based on NIH guidelines): 63.503 kg Excess body weight loss: 49.1% The patient is a 44 year-old F who presents for Bariatric Assessment. Patient presents today for sleeve gastrectomy follow-up. She is an excellent weight loss. Tomas 11 pounds since her last visit. She's had some mild complaints of dizziness. Patient states that this is infrequent. She's not sure what triggers the dizziness. She states that she is drinking well. She denies any dysphagia. She's had some minimal GERD. Past Medical History Past Medical History: No Reported History Additional Past Medical History / Comment(s): BIPOLAR, DEPRESSION, VALVE LEAKS,. ABdominal pain and diarrhea History of Any Multi-Drug Resistant Organisms: None Reported Past Surgical History: Bariatric Surgery, Cholecystectomy, Hysterectomy Additional Past Surgical History / Comment(s): sleeve gastrectomy 05-26-19 Past Anesthesia/Blood Transfusion Reactions: No Reported Reaction Past Psychological History: Bipolar, Depression Smoking Status: Current every day smoker Past Alcohol Use History: None Reported Additional Past Alcohol Use History / Comment(s): smoker "few years 1/2 ppd" Past Drug Use History: None Reported - Past Family History Mother Family Medical History: No Reported History Surgical - Exam Vital Signs Temp Pulse Resp BP 97.7 F 68 16 122/66 10/02/19 13:10 10/02/19 13:10 10/02/19 13:10 10/02/19 13:10 - General well developed, well nourished, no distress - Eyes PERRL - ENT normal pinna - Neck no masses - Respiratory normal expansion - Cardiovascular Rhythm: regular - Abdomen Abdomen: soft, non tender Bariatric Assessment & Plan Plan: Status post sleeve gastrectomy. Patient's girth is minimal will be observed. She will follow-up Dr. Muhammad to have her medications possibly adjusted. Bariatric Checklist Checklist: Plan: Checklist: EGD: 1. Hiatal hernia: 2. H. Pylori: HgbA1c: Vitamin D: Smoking: Current every day smoker Primary care physician referral: dr muhammad Psychiatry clearance: Cardiology clearance: Sleep study: Diet journal: VTE risk score: VTE risk level: Rehab needs at discharge:
== END | disposition home or self-care (01) ==
LOC: BARWHC3 12:56
PROVIDERS: ATTEND Surgery
DX: Z48.815 Encounter for surgical aftercare following surgery on the digestive system (principal); F17.200 Nicotine dependence, unspecified, uncomplicated; Z90.49 Acquired absence of other specified parts of digestive tract; Z98.84 Bariatric surgery status
CPT/HCPCS: 97803; 99211

== ENCOUNTER → 2019-12-07 | Outpatient (CLI) | payer BC ==
--- NOTE | 2019-12-11 09:32 | MM ---
Reason for exam: screening (asymptomatic). Last mammogram was performed 1 year ago. History: Patient is postmenopausal. Family history of breast cancer in maternal grandmother. Physical Findings: A clinical breast exam by your physician is recommended on an annual basis and results should be correlated with mammographic findings. MG Screening Mammo w CAD Bilateral CC and MLO view(s) were taken. Prior study comparison: November 28, 2018, mammogram. November 20, 2014, mammogram. The breast tissue is heterogeneously dense. This may lower the sensitivity of mammography. Benign appearing bilateral calcifications. ASSESSMENT: Benign, BI-RAD 2 RECOMMENDATION: Routine screening mammogram of both breasts in 1 year.
== END | disposition home or self-care (01) ==
LOC: RADMAMWWP 09:20
PROVIDERS: ATTEND Internal Medicine
DX: Z12.31 Encounter for screening mammogram for malignant neoplasm of breast (principal)
CPT/HCPCS: 77067

== ENCOUNTER → 2020-01-08 | Outpatient (CLI) | payer BC ==
[2020-01-08 14:36] VITALS: BP 123/82; PULSE 74; TEMP 97.2; BMI 27.9
--- NOTE | 2020-01-10 08:12 | P.HPBAR ---
Bariatric H&P - History & Physicial H&P Date: 01/08/20 History & Physicial: Visit/CC: annual sleeve follow up Patient initial contact: Initial weight: 125.963 kg Initial weight in pounds: 277.70 Height: 5 ft 8 in Initial BMI: 42.2 Last weight: Current weight: 83.461 kg Current weight in pounds: 184.00 Current BMI: 27.9 [place] body weight (based on NIH guidelines): 63.503 kg Excess body weight loss: 68.0% The patient is a 44 year-old F who presents for Bariatric Assessment. Patient presents today for sleeve gastrectomy follow-up. She has prostate 1-year-old. She has lost 25 pounds her last visit. She has minimal GERD. Past Medical History Past Medical History: No Reported History Additional Past Medical History / Comment(s): BIPOLAR, DEPRESSION, VALVE LEAKS,. ABdominal pain and diarrhea History of Any Multi-Drug Resistant Organisms: None Reported Past Surgical History: Bariatric Surgery, Cholecystectomy, Hysterectomy Additional Past Surgical History / Comment(s): sleeve gastrectomy 05-26-19 Past Anesthesia/Blood Transfusion Reactions: No Reported Reaction Smoking Status: Current every day smoker - Past Family History Mother Family Medical History: No Reported History Surgical - Exam Vital Signs Temp Pulse BP 97.2 F L 74 123/82 01/08/20 14:34 01/08/20 14:34 01/08/20 14:34 - General well developed, well nourished, no distress - Eyes PERRL - ENT normal pinna - Neck no masses - Respiratory normal expansion - Cardiovascular Rhythm: regular - Abdomen Abdomen: soft, non tender Bariatric Assessment & Plan Plan: Status post sleeve gastrectomy. Patient's weight loss is excellent. Her BMI is 28. Patient is minimal will be observed. She'll follow-up in 3 months. Bariatric Checklist Checklist: Plan: Checklist: EGD: 1. Hiatal hernia: 2. H. Pylori: HgbA1c: Vitamin D: Smoking: Current every day smoker Primary care physician referral: dr muhammad Psychiatry clearance: Cardiology clearance: Sleep study: Diet journal: VTE risk score: VTE risk level: Rehab needs at discharge:
== END | disposition home or self-care (01) ==
LOC: BARWHC3 13:41
PROVIDERS: ATTEND Surgery
DX: Z48.815 Encounter for surgical aftercare following surgery on the digestive system (principal); K21.9 Gastro-esophageal reflux disease without esophagitis; F17.200 Nicotine dependence, unspecified, uncomplicated; Z98.84 Bariatric surgery status; Z90.49 Acquired absence of other specified parts of digestive tract; Z90.710 Acquired absence of both cervix and uterus
CPT/HCPCS: 99211

== ENCOUNTER → 2020-01-09 | Outpatient (CLI) | payer SELFPAY ==
[2020-01-09 13:49] LABS: HCT 42.3 % (34.0-46.0); HGB 13.4 gm/dL (11.4-16.0); MCH 29.5 pg (25.0-35.0); MCHC 31.6 g/dL (31.0-37.0); MCV 93.3 fL (80.0-100.0); Mean Platelet Volume 8.8; Platelet Count 229 k/uL (150-450); RBC 4.53 m/uL (3.80-5.40); RDW 12.5 % (11.5-15.5); WBC 7.3 k/uL (3.8-10.6)
[2020-01-09 18:22] LABS: African American GFR (CKD) 102.5 (60.0-200.0); Albumin/Globulin Ratio 2.11 (1.60-3.17); Anion Gap 4.9 mmol/L (4.00-12.00); BUN/Creat Ratio 12.5 Ratio (12.00-20.00); Calcium 9.2 mg/dL (8.7-10.3); Carbon Dioxide 30.1 mmol/L (21.6-31.8); Globulin 1.9 g/dL (1.6-3.3); Non-African American GFR(CKD) 88.4 (60.0-200.0); Potassium 3.6 mmol/L (3.5-5.5); Total Bilirubin 0.7 mg/dL (0.2-1.2); Total Protein 5.9 g/dL (6.2-8.2)
[2020-01-09 18:46] LABS: Folate, Serum 10.9 ng/mL
== END | disposition home or self-care (01) ==
LOC: LABWHC1 13:16
PROVIDERS: ATTEND Surgery
DX: E44.0 Moderate protein-calorie malnutrition (principal); E55.9 Vitamin D deficiency, unspecified; E66.01 Morbid (severe) obesity due to excess calories
CPT/HCPCS: 36415; 80053; 82306; 82607; 82746; 84425; 84443; 85027

== ENCOUNTER → 2020-04-15 | Outpatient (CLI) | payer BC ==
[2020-04-15 13:36] VITALS: BP 106/70; PULSE 60; TEMP 98.2; BMI 26.3
--- NOTE | 2020-04-15 15:58 | P.HPBAR ---
Bariatric H&P - History & Physicial H&P Date: 04/15/20 History & Physicial: Visit/CC: annual follow up Patient initial contact: Initial weight: 125.963 kg Initial weight in pounds: 277.70 Height: 5 ft 8 in Initial BMI: 42.2 Last weight: Current weight: 78.471 kg Current weight in pounds: 173.00 Current BMI: 26.3 [place] body weight (based on NIH guidelines): 63.503 kg Excess body weight loss: 76.0% The patient is a 44 year-old F who presents for Bariatric Assessment. Patient presents today for sleeve gastrectomy follow-up. She is an excellent weight loss. She lost pressure 100 pounds since her sleeve was performed. She's had some minimal GERD. Her GERD is much improved from her last visit. Past Medical History Past Medical History: No Reported History Additional Past Medical History / Comment(s): BIPOLAR, DEPRESSION, VALVE LEAKS,. ABdominal pain and diarrhea History of Any Multi-Drug Resistant Organisms: None Reported Past Surgical History: Bariatric Surgery, Cholecystectomy, Hysterectomy Additional Past Surgical History / Comment(s): sleeve gastrectomy 05-26-19 Past Anesthesia/Blood Transfusion Reactions: No Reported Reaction Past Psychological History: Bipolar, Depression Smoking Status: Current every day smoker Past Alcohol Use History: None Reported Additional Past Alcohol Use History / Comment(s): smoker "few years 1/2 ppd" Past Drug Use History: None Reported - Past Family History Mother Family Medical History: No Reported History Surgical - Exam Vital Signs Temp Pulse BP 98.2 F 60 106/70 04/15/20 13:33 04/15/20 13:33 04/15/20 13:33 - General well developed, well nourished, no distress - Eyes PERRL - ENT normal pinna - Neck no masses - Respiratory normal expansion - Cardiovascular Rhythm: regular - Abdomen Abdomen: soft, non tender Bariatric Assessment & Plan Plan: Status post sleeve gastrectomy. Patient's GERD is minimal and will be observed. She'll follow-up in 4 weeks. She'll continue omeprazole therapy. Bariatric Checklist Checklist: Plan: Checklist: EGD: 1. Hiatal hernia: 2. H. Pylori: HgbA1c: Vitamin D: Smoking: Current every day smoker Primary care physician referral: dr muhammad Psychiatry clearance: Cardiology clearance: Sleep study: Diet journal: VTE risk score: VTE risk level: Rehab needs at discharge:
== END | disposition home or self-care (01) ==
LOC: BARWHC3 12:29
PROVIDERS: ATTEND Surgery
DX: Z48.815 Encounter for surgical aftercare following surgery on the digestive system (principal); K21.9 Gastro-esophageal reflux disease without esophagitis; F17.210 Nicotine dependence, cigarettes, uncomplicated; Z90.49 Acquired absence of other specified parts of digestive tract; Z98.84 Bariatric surgery status; Z90.710 Acquired absence of both cervix and uterus
CPT/HCPCS: 99211

== ENCOUNTER → 2020-07-22 | Outpatient (CLI) | payer BC ==
[2020-07-22 13:40] VITALS: BP 104/48; PULSE 53; RESP 18; TEMP 98.3
--- NOTE | 2020-07-22 13:42 | P.HPBAR ---
Bariatric H&P - History & Physicial H&P Date: 07/22/20 History & Physicial: Visit/CC: follow up 1 year Patient initial contact: Initial weight: 125.963 kg Initial weight in pounds: 277.70 Height: 5 ft 8 in Initial BMI: Last weight: Current weight: 74.389 kg Current weight in pounds: Current BMI: [place] body weight (based on NIH guidelines): Excess body weight loss: The patient is a 44 year-old F who presents for Bariatric Assessment. Patient Zentz today for sleep gastric follow-up. She is approximately one year postop. She is loss approximately 100 pounds. She's had some mild GERD but denies any dysphagia. Past Medical History Past Medical History: No Reported History Additional Past Medical History / Comment(s): BIPOLAR, DEPRESSION, VALVE LEAKS,. ABdominal pain and diarrhea History of Any Multi-Drug Resistant Organisms: None Reported Past Surgical History: Bariatric Surgery, Cholecystectomy, Hysterectomy Additional Past Surgical History / Comment(s): sleeve gastrectomy 05-26-19 Past Anesthesia/Blood Transfusion Reactions: No Reported Reaction Past Psychological History: Bipolar, Depression Smoking Status: Unknown if ever smoked Past Alcohol Use History: None Reported Additional Past Alcohol Use History / Comment(s): smoker "few years 1/2 ppd" Past Drug Use History: None Reported - Past Family History Mother Family Medical History: No Reported History Surgical - Exam Vital Signs Temp Pulse Resp BP 98.3 F 53 L 18 104/48 07/22/20 13:38 07/22/20 13:38 07/22/20 13:38 07/22/20 13:38 - General well developed, well nourished, no distress - Eyes PERRL - ENT normal pinna - Neck no masses - Respiratory normal expansion - Cardiovascular Rhythm: regular - Abdomen Abdomen: soft, non tender Bariatric Assessment & Plan Plan: Status post sleeve gastrectomy. Patient's GERD is minimal will be observed. She'll have routine labs performed today. She'll follow-up in 3 months. Bariatric Checklist Checklist: Plan: Checklist: EGD: 1. Hiatal hernia: 2. H. Pylori: HgbA1c: Vitamin D: Smoking: Current every day smoker Primary care physician referral: dr muhammad Psychiatry clearance: Cardiology clearance: Sleep study: Diet journal: VTE risk score: VTE risk level: Rehab needs at discharge:
== END | disposition home or self-care (01) ==
LOC: BARWHC3 12:51
PROVIDERS: ATTEND Surgery
DX: Z48.815 Encounter for surgical aftercare following surgery on the digestive system (principal); Z98.84 Bariatric surgery status; F17.200 Nicotine dependence, unspecified, uncomplicated
CPT/HCPCS: 99211

== ENCOUNTER → 2021-06-03 | Outpatient (CLI) | payer BC ==
--- NOTE | 2021-06-05 11:48 | MM ---
Reason for exam: screening (asymptomatic). Last mammogram was performed 1 year and 6 months ago. History: Patient is postmenopausal. Family history of breast cancer in maternal grandmother. Physical Findings: A clinical breast exam by your physician is recommended on an annual basis and results should be correlated with mammographic findings. MG Screening Mammo w CAD Bilateral CC and MLO view(s) were taken. Prior study comparison: December 07, 2019, bilateral MG screening mammo w CAD. November 28, 2018, mammogram. The breast tissue is heterogeneously dense. This may lower the sensitivity of mammography. Stable benign calcifications. There is chronic nodularity bilaterally. There is no dominant lesion. No significant changes when compared with prior studies. ASSESSMENT: Benign, BI-RAD 2 RECOMMENDATION: Routine screening mammogram of both breasts in 1 year.
== END | disposition home or self-care (01) ==
LOC: RADMAMWWP 09:49
PROVIDERS: ATTEND Internal Medicine
DX: Z12.31 Encounter for screening mammogram for malignant neoplasm of breast (principal); Z78.0 Asymptomatic menopausal state; Z80.3 Family history of malignant neoplasm of breast
CPT/HCPCS: 77067

== ENCOUNTER 2021-09-27 20:43 | Emergency (ER) | payer BC, OTHER ==
[2021-09-27 21:17] VITALS: BP 111/56; PULSE 59; RESP 22; TEMP 98.4
== END 2021-09-27 22:21 ==
LOC: EC 20:43
DX: Z02.89 Encounter for other administrative examinations (principal)
CPT/HCPCS: 99499

== ENCOUNTER → 2024-11-09 | Outpatient (CLI) | payer BC ==
--- NOTE | 2024-11-09 16:54 | MM ---
Reason for Exam: Screening (asymptomatic). Last mammogram was performed 3 year(s) and 6 month(s) ago. Patient History: Menarche at age 11. First Full-Term at age 18. Hysterectomy at age 38. Postmenopausal. Maternal grandmother had breast cancer. Risk Values: Dayami 5 year model risk: 0.9%. NCI Lifetime model risk: 7.9%. Prior Study Comparison: 11/28/2018 Screening Mammogram, Unknown. 12/07/2019 Bilateral Screening Mammogram, [facility]. 06/03/2021 Bilateral Screening Mammogram, [facility]. Tissue Density: There are scattered areas of fibroglandular density. Findings: Analyzed By CAD. The pattern is symmetrical. Multiple spherical calcifications are within the right breast. Small round calcifications are left breast No suspicious groups of microcalcifications, spiculated or lobular masses, architectural distortion or other secondary signs of malignancy are mammographically apparent. Overall Assessment: Benign, BI-RAD 2 Management: Screening Mammogram of both breasts in 1 year. A negative mammogram report should not preclude additional follow up of suspicious palpable abnormalities. Patient should continue monthly self breast exam. A clinical breast exam by your physician is recommended on an annual basis and results should be correlated with mammographic findings. Note on Dayami scores and lifetime risk: 1. A Dayami score greater than 3% is considered moderate risk. If this is the case, consider specialist referral to assess eligibility for a risk reducing agent. 2. If overall lifetime risk for the development of breast cancer is 20% or higher, the patient may qualify for future screening with alternating mammogram and breast MRI. [facility], , 11/09/2024 4:51 PM. Electronically signed and approved by: Cas Macdonald D.O. Radiologis
== END | disposition home or self-care (01) ==
LOC: RADMAMWWP 10:36
PROVIDERS: ATTEND Family Medicine
DX: Z12.31 Encounter for screening mammogram for malignant neoplasm of breast (principal); R92.323 Mammographic fibroglandular density, bilateral breasts; Z78.0 Asymptomatic menopausal state; Z80.3 Family history of malignant neoplasm of breast
CPT/HCPCS: 77063; 77067